=== PATIENT | male | born 1930 ===

== ENCOUNTER 2017-10-12 17:03 | Emergency (ER) | payer OTHER, MEDICARE ==
[~2017-10-12] VITALS: Ht 170.2 cm; Wt 68.0 kg
[~2017-10-12 17:03] MED LIST: ARICEPT ODT10 MG PO; ASPIRIN81 M1 PO; FLOMAX(MONOGRA0.4 MG PO; FOLIC ACID 1 MG PO; LIPITOR20 MG PO; LOPRESSOR50 MG PO; MICROZIDE12.5 MG PO; PROS5 PO; TOPROL XL 25MG25 MG PO; VITAMIN B122500 MCG PO
[2017-10-12 17:07] VITALS: BP 186/90
--- NOTE | 2017-10-12 18:41 | ED GI/GU/ABDOMINAL COMPLAINT ---
See Addendum History of Present Illness General Chief Complaint: Male Genitourinary Problems Stated Complaint: NO URINE OUTPUT INTO CATH Source: family Exam Limitations: dementia Vital Signs & Intake/Output Vital Signs & Intake/Output Vital Signs Date Time Temp Pulse Resp B/P B/P Pulse O2 O2 Flow FiO2 Mean Ox Delivery Rate 10/12 1939 96 Room Air 10/12 1707 96.4 96 18 186/90 94 Room Air Room Air Allergies Coded Allergies: NO KNOWN ALLERGIES (08/07/15) Triage Note: TRIAGE: 87 Y/O MALE PRESENTS FOR URINARY CATHETER CHANGE. DUE FOR CATH CHANGE AT UROLOGIST TOMORROW - BUT NO OUTPUT IN DRAINAGE BAG TODAY. Triage Nurses Notes Reviewed? yes Duration: constant Timing: single episode today Quality/Severity: fullness Severity Numbers: 5 Radiation: no radiation HPI: PT IS AN 87-year-old male PMH of hypertension, hyperlipidemia, dementia, stroke, ICH and chronic UTIs with indwelling Pascal catheter patient's urologist Dr. Carson in which patient presents to emergency room with son who lives in a private residence together for concerns of noting that the urine catheter tube was dislodged from the Pascal earlier today however the Pascal to the urethra was in place and since reattachment by son patient has had no urine output no vomiting has occurred History is limited due to patient's dementia history (Devora BENÍTEZ,Trever) Reconcile Medications Atorvastatin (Atorvastatin Calcium) 20 MG TAB 1 TAB PO DAILY CHOLESTEROL ( Reported) Augmentin (Augmentin 500-125 Tablet) 500 MG-125 MG TABLET 1 TAB PO BID UTI CYANOCOBALAMIN (VITAMIN B-12) (Vitamin B-12) 2,500 MCG TAB 1 TAB PO DAILY SUPPLEMENT (Reported) DONEPEZIL HCL (Aricept Odt) 10 MG ODT 0.5 TAB PO DAILY MENTAL HEALTH ( Reported) Finasteride (Propecia) 5 MG TAB 5 MG PO DAILY BPH Folic Acid 1 MG TAB 1 TAB PO DAILY FOLIC ACID SUPPLEMENT (Reported) Hydrochlorothiazide (Microzide) 12.5 MG CAP 1 CAP PO DAILY WATR PILL ( Reported) Metoprolol Succ XL (Toprol XL 25MG) 25 MG TAB 25 MG PO DAILY High Blood Pressure Tamsulosin Hydrochloride (Flomax) 0.4 MG CAP 0.4 MG PO DAILY BPH (Antony PEREZ,[place]) Past History Travel History Traveled to [place] past 21 day No Medical History Any Pertinent Medical History? 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 No (Trever John) Review of Systems Review of Systems Constitutional: Reports: no symptoms. EENTM: Reports: no symptoms. Respiratory: Reports: no symptoms. Cardiovascular: Reports: no symptoms. GI: Reports: see HPI. Genitourinary: Reports: see HPI. Musculoskeletal: Reports: no symptoms. Skin: Reports: no symptoms. Neurological/Psychological: Reports: no symptoms. Hematologic/Endocrine: Reports: no symptoms. Immunologic/Allergic: Reports: no symptoms. All Other Systems: Reviewed and Negative (Trever John) Physical Exam Physical Exam General Appearance: no apparent distress, alert, comfortable Head: atraumatic Eyes: Bilateral: normal appearance. Ears, Nose, Throat, Mouth: hearing grossly normal Neck: normal inspection Respiratory: no respiratory distress Cardiovascular: regular rate/rhythm Gastrointestinal: distention, tenderness Extremities: normal range of motion Skin: intact, normal color Core Measures ACS in differential dx? No Sepsis Present: No Sepsis Focused Exam Completed? No (Trever John) Progress Differential Diagnosis: AAA, AMI, appendicitis, biliary colic, bowel obstruction , colon cancer, cholecystitis, diverticulitis, gastritis, hepatitis, hernia, hemorrhoids, ischemic bowel, inflamm bowel dis, orchitis, pancreatitis, prostatitis, peptic ulcer, PUD/GERD, perforated viscous, pyelonephritis, SBO, testicular torsion, ureterolithiasis, urinary retention, urethritis, UTI/pyelo Initial ED EKG: none (Trever John) Plan of Care: Orders Procedure Date/time Status Pascal, Insertion/Removal/Asses 10/12 1844 Active CULTURE,URINE 10/12 1844 Active URINALYSIS 10/12 1844 Complete Laboratory Tests 10/12/171957: Urine Color ORANG H, Urine Clarity CLDY H, Urine pH 7.0, Ur Specific [place] 1.020, Urine Protein 100 H, Urine Ketones NEG, Urine Nitrite POS H, Urine Bilirubin NEG, Urine Urobilinogen 0.2, Ur Leukocyte Esterase LARGE H, Ur Microscopic SEDIMENT EXAMINED, Urine RBC 10-15 H, Urine WBC PACKD H, Urine Bacteria MANY H, Urine Hemoglobin LARGE H, Urine Glucose NEG Microbiology 10/12 1957 URINE ROUT: Urine Culture - RECD Patient on initial presentation was resting, bedside no apparent distress afebrile however has no urine output noted an indwelling Pascal patient has mild abdominal tenderness suprapubic region No peritoneal signs Patient afebrile Pascal catheter was replaced by nursing staff and which in total in approximately 10 minutes patient produced 900 mL of dark and brown urine Patient was reexamined nontender and nondistended abdomen Patient will have urine analysis and culture sent and reevaluated to continue to see if urine Pascal is functioning Previous urine cultures indicate that patient has grown out Escherichia coli susceptible TO X2 both occasions to Augmentin After Pascal was placed patient is producing urine patient will be treated for UTI discussed disposition and plan with Dr. Hardy and son who agreed have no questions (Trever John) (Antony PEREZ,[place]) Departure Departure Disposition: HOME OR SELF CARE Condition: Stable Clinical Impression Primary Impression: UTI (urinary tract infection) Secondary Impressions: Malfunction of Pascal catheter Referrals: Iban Turner MD (PCP/Family) Additional Instructions: As discussed follow-up with your urologist tomorrow for further evaluation treatment continue with your Pascal care maintenance, if symptoms worsen return to emergency room. Begin the prescription of Augmentin as directed PRESCRIPTIONS waiting at [facility] Departure Forms: Customer Survey General Discharge Information Prescriptions: Current Visit Scripts Augmentin (Augmentin 500-125 Tablet) 1 TAB PO BID #14 TAB (Trever John) PA/BALL WINDER Co-Sign Statement Statement: ED Attending supervision documentation- [X] I saw and evaluated the patient. I have also reviewed all the pertinent lab results and diagnostic results. I agree with the findings and the plan of care as documented in the PA's/BALL WINDER's documentation. [X] I have reviewed the ED Record and agree with the PA's/BALL WINDER's documentation. [] Additions or exceptions (if any) to the PAs/BALL WINDER's note and plan are summarized below: [] (Antony PEREZ,[place])
[2017-10-12] MEDS ORDERED: AUGMENTIN 500-1 EACH PO (20:21)
== END 2017-10-12 20:36 ==
LOC: ERH 17:03
DX: T83.511A Infection and inflammatory reaction due to indwelling urethral catheter, initial encounter (principal); N39.0 Urinary tract infection, site not specified
CPT/HCPCS: 81001; 87086

== ENCOUNTER 2017-11-08 12:27 | Emergency (ER) | payer OTHER, MEDICARE ==
[~2017-11-08] VITALS: Ht 170.2 cm; Wt 65.8 kg
[~2017-11-08 12:27] MED LIST changes: +AUGMENTIN 500-1 EACH PO
--- NOTE | 2017-11-08 12:36 | ED GI/GU/ABDOMINAL COMPLAINT ---
History of Present Illness General Chief Complaint: Male Genitourinary Problems Stated Complaint: ELISE LEAKING Source: patient, family Exam Limitations: no limitations Vital Signs & Intake/Output Vital Signs & Intake/Output Vital Signs Date Time Temp Pulse Resp B/P B/P Pulse O2 O2 Flow FiO2 Mean Ox Delivery Rate 11/08 1423 97.8 52 18 171/79 98 Room Air 11/08 1229 96.4 61 18 180/90 97 Room Air ED Intake and Output 11/09 0000 11/08 1200 Intake Total Output Total 100 Balance -100 Output, Urine 100 Patient 145 lb Weight Weight Reported by Patient Measurement Method Allergies Coded Allergies: NO KNOWN ALLERGIES (08/07/15) Triage Note: 87 "LEAKING ELISE CATHETER" - FIRST NOTICED THIS AM WHILE FAMILY WAS WASHING PT. [facility] PLACED CATHETER APPROX 3-4 WEEKS AGO AND LEAKING WAS FIRST NOTED TODAY. SMALL AMOUNT OF URINE NOTED IN BAG, APPEARS DARK. Triage Nurses Notes Reviewed? yes HPI: 87 yo M PMH HTN, recurrent UTI/BPH (w/ chronic elise) presenting with elise catheter problem. Patient's son states that this morning when he went to get him ready for the day and found his pants to be soaked with urine with presumed leaking of urine around the Elise catheter insertion site. Patient has been otherwise asymptomatic, son denies fevers, change in color or smell of urine, unsteady gait, confusion, or other concerning symptoms. (Radha PEREZ,Bhavesh) Past History Travel History Traveled to [place] past 21 day No Medical History Any Pertinent Medical History? 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 No (Bhavesh Garcia MD) Review of Systems Review of Systems Constitutional: Reports: no symptoms. EENTM: Reports: no symptoms. Respiratory: Reports: no symptoms. Cardiovascular: Reports: no symptoms. GI: Reports: no symptoms. Genitourinary: Reports: see HPI. Musculoskeletal: Reports: no symptoms. Skin: Reports: no symptoms. Neurological/Psychological: Reports: no symptoms. Hematologic/Endocrine: Reports: no symptoms. Immunologic/Allergic: Reports: no symptoms. All Other Systems: Reviewed and Negative (Radha PEREZ,Bhavesh) Physical Exam Physical Exam General Appearance: well developed/nourished, no apparent distress, alert, awake Eyes: Bilateral: PERRL, EOMI. 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 No Sepsis Present: No Sepsis Focused Exam Completed? No (Bhavesh Garcia MD) Progress Differential Diagnosis: AAA, AMI, appendicitis, biliary colic, bowel obstruction , colon cancer, cholecystitis, diverticulitis, epididymitis, esophageal varices, gastritis, hepatitis, hernia, hemorrhoids, ischemic bowel, inflamm bowel dis, Diana-Saray tear, orchitis, pancreatitis, prostatitis, peptic ulcer, PUD/GERD, perforated viscous, pyelonephritis, SBO, STD, testicular torsion, ureterolithiasis, urinary retention, urethritis, UTI/pyelo Plan of Care: Orders Procedure Date/time Status Elise, Insertion/Removal/Asses 11/08 1323 Active CULTURE,URINE 11/08 1256 Active URINALYSIS 11/08 1256 Complete Laboratory Tests 11/08/17 1320: Urine Color YEL, Urine Clarity CLDY H, Urine pH 7.5, Ur Specific [place] 1.020, Urine Protein 100 H, Urine Ketones NEG, Urine Nitrite NEG, Urine Bilirubin NEG, Urine Urobilinogen 0.2, Ur Leukocyte Esterase MOD H, Ur Microscopic SEDIMENT EXAMINED, Urine RBC 3-5, Urine WBC PACKD H, Urine Bacteria MANY H, Urine Hemoglobin MOD H, Urine Glucose NEG Microbiology 11/08 1320 URINE ROUT: Urine Culture - RECD Physician MDM: 87 yo M PMH HTN, recurrent UTI/BPH (w/ chronic elise) presenting with elise catheter problem. VSS, afebrile, remainder of exam as above. DDx: Elise catheter malfunction, consider UTI. Discussed ventral penile wound with son, chronic, does not appear worse today, does not seem to cause patient discomfort. Defective 16 Fr elise removed (notably 25 cc of fluid in balloon, ? overinflated), 16 Fr elise replaced without complication, drainage of urine into bag without drainage at urethral opening. UA sent from Elise with many WBCs, many bacteria, nitrate negative, discussed findings UA was son, low concern for UTI given patient at baseline without fevers, son notes that patient has had "resistant Bacteria", most recent UCx shows multi resistant Escherichia coli ( susceptible only to gentamicin). I discussed outpatient monitoring with the patients son vs. admission for IV antibiotics, given overall low concern for UTI , son would prefer to monitor for concerning symptoms at home, will return to ED for fevers, confusion, or gait instability, plan to follow-up with urologist on Friday for results of urine culture and further treatment.. On re-examination patient well-appearing, resting comfortably, ambulated in ED at baseline. Discharged with return precautions, plan for close follow-up with urology. Initial ED EKG: none (Radha PEREZ,Bhavesh) Departure Departure Disposition: HOME OR SELF CARE Condition: Stable Clinical Impression Primary Impression: Elise catheter problem Referrals: Iban Turner MD (PCP/Family) Additional Instructions: Follow up with your urologist in the next 2-3 days for results of Urine Culture. Return to th ED if Vinny seems unsteady on his feet, confused, or develops fevers. Return to the ED for any new, worsening, or concerning symptoms. Departure Forms: Customer Survey General Discharge Information (Bhavesh Garcia MD) Resident Co-Sign Statement Statement: ED Attending supervision documentation- I saw and evaluated the patient. I have also reviewed all the pertinent lab results and diagnostic results. I agree with the findings and the plan of care as documented in the Resident's documentation. x I have reviewed the ED Record and agree with the Resident's documentation. [] Additions or exceptions (if any) to the Resident's note and plan are summarized below: [] (Jesse PEREZ,[place])
[2017-11-08 14:23] VITALS: BP 171/79
== END 2017-11-08 15:15 ==
LOC: ERH 12:27
DX: T83.038A Leakage of other urinary catheter, initial encounter (principal)
CPT/HCPCS: 81001; 87086

== ENCOUNTER 2017-11-15 12:27 | Emergency (ER) | payer OTHER, MEDICARE ==
[~2017-11-15] VITALS: Ht 170.2 cm; Wt 63.5 kg
[2017-11-15 12:35] VITALS: BP 121/61
--- NOTE | 2017-11-15 13:01 | ED GI/GU/ABDOMINAL COMPLAINT ---
History of Present Illness General Chief Complaint: Male Genitourinary Problems Stated Complaint: ?CLOGGED ELISE Source: patient, family (SON), old records Exam Limitations: no limitations Vital Signs & Intake/Output Vital Signs & Intake/Output Vital Signs Date Time Temp Pulse Resp B/P B/P Pulse O2 O2 Flow FiO2 Mean Ox Delivery Rate 11/15 1235 96.4 52 16 121/61 95 Room Air Allergies Coded Allergies: NO KNOWN ALLERGIES (08/07/15) Reconcile Medications Sulfamethoxazole/Trimethoprim (Bactrim Ds Tablet) 800 MG-160 MG TABLET 1 TAB PO BID UTI Triage Note: PT PRESENTS TO THE ER C/O NO URINE IN ELISE. PT WAS SEEN IN THE ER LAST SAT FOR ELISE LEAKING AND ELISE WAS CHANGED. PER PT SON IT WAS WORKING UNTIL LAST NIGHT. FROM LAST NIGHT SMALL AMOUNT OF URINE. PT STATES "I HAVE TO PEE" PT DENIES PAIN Triage Nurses Notes Reviewed? yes Onset: Abrupt Duration: day(s): (1), constant, continues in ED Timing: recent history Quality/Severity: fullness Location: suprapubic Radiation: no radiation Activities at Onset: none Prior Abdominal Problems: similar symptoms Past Sexual History: Unobtainable at this time No Modifying Factors: none HPI: 87-year-old male past medical history of CVA, dementia presents for evaluation of a possibly clogged Elise. Patient's son reports that the urine output in the Elise bag has reduced significantly patient states he feels like he needs to urinate. He denies any fevers or leakage of urine from the Elise. Patient was here last week with a leaking Elise that was replaced. Patient had been fine until this morning. Patient's mental status is at baseline. There is been no fever or chills pain weakness or difficulty ambulating. No chest pain shortness of breath abdominal pain or back pain. (Bar Ackerman) Past History Travel History Traveled to [place] past 21 day No Medical History Any Pertinent Medical History? 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 No (Bar Ackerman) Review of Systems Review of Systems Constitutional: Reports: no symptoms. EENTM: Reports: no symptoms. Respiratory: Reports: no symptoms. Cardiovascular: Reports: no symptoms. GI: Reports: no symptoms. Genitourinary: Reports: see HPI. Musculoskeletal: Reports: no symptoms. Skin: Reports: no symptoms. Neurological/Psychological: Reports: no symptoms. Hematologic/Endocrine: Reports: no symptoms. Immunologic/Allergic: Reports: no symptoms. All Other Systems: Reviewed and Negative (Bar Ackerman) Physical Exam Physical Exam General Appearance: well developed/nourished, no apparent distress, alert, awake Head: atraumatic, normal appearance Eyes: Bilateral: normal appearance, EOMI. Ears, Nose, Throat, Mouth: hearing grossly normal, moist mucous membrane Neck: normal inspection, supple, full range of motion Respiratory: normal breath sounds, chest non-tender, no respiratory distress, lungs clear Cardiovascular: regular rate/rhythm, normal peripheral pulses Peripheral Pulses: 2+ radial (R), 2+ radial (L) Gastrointestinal: normal bowel sounds, soft, non-tender, no organomegaly Male Genitals: Elise CATHETER IS IN PLACE AT THE BASE OF THE PENIS. tHERE APPEARS TO BE A CHRONIC WOUND IN THIS AREA RELATED TO THE Elise CATHETER BEING IN PLACE FOR GREATER THAN A YEAR. tHERE IS NO ERYTHEMA OR SWELLING OR PURULENT DISCHARGE. nO TENDERNESS TO PALPATION. Back: normal inspection, normal range of motion, no vertebral tenderness Extremities: normal range of motion Neurologic/Psych: no motor/sensory deficits, awake, alert, normal gait (WITH WALKER ), PATIENT IS ALERT AND ORIENTED TO PERSON AND PLACE ONLY THIS IS BASELINE Skin: intact, normal color, warm/dry Core Measures ACS in differential dx? No Sepsis Present: No Sepsis Focused Exam Completed? No (Bar Ackerman) Progress Differential Diagnosis: ureterolithiasis, urinary retention, urethritis, UTI/ pyelo Plan of Care: Orders Procedure Date/time Status Elise, Insertion/Removal/Asses 11/15 1236 Active CULTURE,URINE 11/15 1236 Active URINALYSIS 11/15 1236 Complete Laboratory Tests 11/15/17 1300: Urine Color YEL, Urine Clarity CLDY H, Urine pH 7.0, Ur Specific [place] 1.020, Urine Protein 100 H, Urine Ketones NEG, Urine Nitrite NEG, Urine Bilirubin NEG, Urine Urobilinogen 1.0, Ur Leukocyte Esterase MOD H, Ur Microscopic SEDIMENT EXAMINED, Urine RBC 1-3, Urine WBC > 75 H, Urine Bacteria PACKD H, Urine Hemoglobin SMALL H, Urine Glucose NEG Microbiology 11/15 1300 URINE ROUT: Urine Culture - RECD Patient seen and evaluated. He is at his baseline according to his son is at the bedside. No fevers vital signs are stable. No abdominal tenderness no CVA tenderness. Urine in the Elise is showing large amounts of sediment. Urinalysis shows signs of infection. Because this is patient's second time having issues with the Elise will be placed on antibiotics and hope to reduce the amount of sediment in the urine. Previous culture grew bacteria susceptible to Bactrim. Restaurant plenty of fluids and monitor symptoms. Follow up with urologist. Monitor symptoms return with any concerns. Case discussed with Dr. Vega she agrees Initial ED EKG: none (Bar Ackerman) Departure Departure Disposition: HOME OR SELF CARE Condition: Stable Clinical Impression Primary Impression: Obstructed Elise catheter Qualifiers: Encounter type: initial encounter Qualified Code: T83.091A - Other mechanical complication of indwelling urethral catheter, initial encounter Secondary Impressions: UTI (urinary tract infection) Qualifiers: Urinary tract infection type: acute cystitis Hematuria presence: without hematuria Qualified Code: N30.00 - Acute cystitis without hematuria Referrals: Iban Turner MD (PCP/Family) Additional Instructions: Take antibiotics as directed for the full course. Follow up with urologist and primary care doctor. Monitor symptoms return with any concerns Departure Forms: Customer Survey General Discharge Information Prescriptions: Current Visit Scripts Sulfamethoxazole/Trimethoprim (Bactrim Ds Tablet) 1 TAB PO BID #14 TAB (Bar Ackerman) PA/LAND TITLE EXAMINER Co-Sign Statement Statement: ED Attending supervision documentation- [X] I saw and evaluated the patient. I have also reviewed all the pertinent lab results and diagnostic results. I agree with the findings and the plan of care as documented in the PA's/LAND TITLE EXAMINER's documentation. [X] I have reviewed the ED Record and agree with the PA's/LAND TITLE EXAMINER's documentation. [] Additions or exceptions (if any) to the PAs/LAND TITLE EXAMINER's note and plan are summarized below: [] (Gary PEREZ,Lydia)
[2017-11-15] MEDS ORDERED: BACTRIM DS TAB1 EACH PO (13:28)
== END 2017-11-15 13:36 ==
LOC: ERH 12:27
DX: T83.091A Other mechanical complication of indwelling urethral catheter, initial encounter (principal); N39.0 Urinary tract infection, site not specified
CPT/HCPCS: 81001; 87086

== ENCOUNTER 2017-12-18 16:46 | Emergency (ER) | payer OTHER, MEDICARE ==
[~2017-12-18 16:46] MED LIST changes: +BACTRIM DS TAB1 EACH PO
--- NOTE | 2017-12-18 18:28 | ED GI/GU/ABDOMINAL COMPLAINT ---
History of Present Illness General Chief Complaint: General Adult Stated Complaint: LOWER ABD PAIN/ELISE CHANGE PER SON Source: patient Exam Limitations: no limitations Vital Signs & Intake/Output Vital Signs & Intake/Output Vital Signs Date Time Temp Pulse Resp B/P B/P Pulse O2 O2 Flow FiO2 Mean Ox Delivery Rate 12/18 1659 98.1 61 16 144/71 96 Room Air Allergies Coded Allergies: NO KNOWN ALLERGIES (08/07/15) Reconcile Medications Sulfamethoxazole/Trimethoprim (Bactrim Ds Tablet) 800 MG-160 MG TABLET 1 TAB PO BID UTI Triage Note: PT HAS CHRONIC INDEWELLING ELISE DUE TO BE CHANGED THIS COMING FRIDAY. REPORTING LOWER ABD PAIN ALL DAY TODAY. ELISE DRAINING DARK AKIN, CLOUDY URINE. PT HAS BEEN TAKING PO BACTRIM FOR APPROX 1 MONTH PER SON. DENIES FEVERS/CHILLS, N/V. Triage Nurses Notes Reviewed? yes Onset: Abrupt Duration: day(s): Timing: recent history Location: lower abdomen Radiation: no radiation Activities at Onset: none No Modifying Factors: none HPI: 57-year-old male comes into the emergency room for further evaluation of pain to lower abdomen and indwelling catheter. Patient has a history of urinary tract infections. He is currently on Bactrim daily. Family member denies any fever chills vomiting or any other complaints. He complained some pain to his lower abdomen earlier today. No other associated symptoms. (Simon Marino) Past History Travel History Traveled to [place] past 21 day No Medical History Any Pertinent Medical History? see below for history Neurological: CVA, dementia EENT: NONE Cardiovascular: hypertension Respiratory: NONE Gastrointestinal: NONE Hepatic: NONE Renal: urinary incontinence, RECURRENT UTI Musculoskeletal: NONE Psychiatric: NONE Endocrine: NONE Blood Disorders: NONE Cancer(s): NONE AEROSPACE CONTROL AND WARNING SYSTEMS/Reproductive: NONE History of MRSA: No History of VRE: No History of CDIFF: No Surgical History Surgical History: non-contributory Psychosocial History Who do you live with Son Services at Home None What is your primary language Croatian Tobacco Use: Never used Family History Hx Contributory? No (Simon Marino) Review of Systems Review of Systems Constitutional: Reports: no symptoms. EENTM: Reports: no symptoms. Respiratory: Reports: no symptoms. Cardiovascular: Reports: no symptoms. GI: Reports: see HPI. Genitourinary: Reports: no symptoms. Musculoskeletal: Reports: no symptoms. Skin: Reports: no symptoms. Neurological/Psychological: Reports: no symptoms. Hematologic/Endocrine: Reports: no symptoms. Immunologic/Allergic: Reports: no symptoms. All Other Systems: Reviewed and Negative (Simon Marino) Physical Exam Physical Exam General Appearance: alert, awake Head: atraumatic Eyes: Bilateral: normal appearance. Ears, Nose, Throat, Mouth: moist mucous membrane Neck: normal inspection Respiratory: no respiratory distress Gastrointestinal: soft, non-tender Back: normal inspection Neurologic/Psych: awake, alert Skin: intact Core Measures ACS in differential dx? No Sepsis Present: No Sepsis Focused Exam Completed? No (Simon Marino) Progress Differential Diagnosis: appendicitis, bowel obstruction, pyelonephritis, SBO, urethritis, UTI/pyelo Plan of Care: Orders Procedure Date/time Status CULTURE,URINE 12/18 1808 Active URINALYSIS 12/18 1808 Complete COMPREHENSIVE METABOLIC PANEL 12/18 1808 Complete CBC WITHOUT DIFFERENTIAL 12/18 1808 Complete Laboratory Tests 12/18/17 1851: Urinalysis LIGHT H, Urine Color AKIN, Urine Clarity HAZY H, Urine pH 5.5, Ur Specific [place] 1.025, Urine Protein TRACE H, Urine Ketones TRACE H, Urine Nitrite POS H, Urine Bilirubin NEG, Urine Urobilinogen 0.2, Ur Leukocyte Esterase LARGE H, Ur Microscopic SEDIMENT EXAMINED, Urine RBC 1-3, Urine WBC > 75 H, Urine Bacteria MANY H, Hyaline Casts 1-3 H, Granular Casts 1-3 H, Urine Hemoglobin SMALL H, Urine Glucose NEG 12/18/17 1824: Anion Gap 15, Estimated GFR > 60, BUN/Creatinine Ratio 21.3, Glucose 75, Calcium 9.1, Total Bilirubin 1.2, AST 16 L, ALT 10 L, Alkaline Phosphatase 99, Total Protein 6.7, Albumin 3.7, Globulin 3.0, Albumin/Globulin Ratio 1.2, CBC w Diff NO MAN DIFF REQ, RBC 3.93 L, MCV 87.1, MCH 29.2, MCHC 33.5, RDW 14.8 H, MPV 8.1, Gran % 77.5 H, Lymphocytes % 15.9 L, Monocytes % 5.0, Eosinophils % 1.6, Basophils % 0, Absolute Granulocytes 7.0 H, Absolute Lymphocytes 1.4, Absolute Monocytes 0.4, Absolute Eosinophils 0.1, Absolute Basophils 0 Microbiology 12/18 185 URINE ROUT: Urine Culture - RECD Diagnostic Imaging: Viewed by Me: CT Scan. Discussed w/RAD: CT Scan. Radiology Impression: PATIENT: CARLOS KELLY PRESENT AGE: 87 PATIENT ACCOUNT NO: [id number] : [birth year] LOCATION: ER ORDERING PHYSICIAN: Simon BENÍTEZ SERVICE DATE: 12/18/17 EXAM TYPE : CAT - CT ABD & PELVIS W/O IV CONTRAS EXAMINATION: CT ABDOMEN AND PELVIS WITHOUT CONTRAST CLINICAL INFORMATION: Lower abdominal pain COMPARISON: None TECHNIQUE: Multidetector volumetric imaging was performed from the superior aspect of the liver through the pubic symphysis. Sagittal and coronal reformatted images were obtained on the technologist's workstation. DLP: 393 mGy -cm FINDINGS: LUNG BASES: Mild bibasilar atelectasis. LIVER, GALLBLADDER, AND BILIARY TREE: Limited noncontrast evaluation of the liver is normal. No discrete focal lesion seen. The gallbladder is unremarkable with no evidence of radiopaque gallstones, gallbladder wall thickening, or obvious pericholecystic inflammatory changes. PANCREAS: Unremarkable. SPLEEN: Unremarkable. ADRENAL GLANDS: Left adrenal gland is prominent but there is no discrete nodules seen. There is a lesser degree of thickening of the right adrenal gland. KIDNEYS AND URETERS: 2 to 3 mm nonobstructing right upper pole renal calculus. No hydronephrosis. No solid renal mass. BLADDER: There is a Elise catheter within a decompressed urinary bladder. GASTROINTESTINAL TRACT: The stomach is collapsed with wall thickening likely due to underdistention. Small bowel is nondilated. The appendix is normal. There is extensive colonic diverticulosis but no colonic wall thickening or pericolonic inflammatory changes to suggest colitis or diverticulitis. There is a large volume of stool throughout much of the colon, particularly the transverse colon. There is a large volume of stool in the rectum. There is mild circumferential rectal wall thickening with perirectal fluid and fat stranding, particularly in the presacral space. ABDOMINAL WALL: No significant hernia is appreciated. LYMPH NODES: No lymphadenopathy. VASCULAR: Normal caliber abdominal aorta. There is circumferential calcified atherosclerotic change of the aorta. 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 PELVIC VISCERA: The prostate and seminal vesicles are unremarkable. OSSEOUS STRUCTURES: Extensive degenerative changes are seen. 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 There are degenerative changes of the bilateral hips. There are severe degenerative changes of the right first carpometacarpal joint. IMPRESSION: There is a large volume of stool in the rectum with mild circumferential rectal wall thickening and subtle perirectal fluid and fat stranding, particularly in the presacral space. Stercoral colitis could give this appearance. No evidence of obstruction. No evidence of colitis or diverticulitis. DICTATED BY: Saturnino Mack MD DATE/ TIME DICTATED:12/18/171850 RN STAFF:MICHAELLE DATE/TIME TRANSCRIBED: 12/18/171850 CONFIDENTIAL, DO NOT COPY WITHOUT APPROPRIATE AUTHORIZATION. < Electronically signed in Other Vendor System> SIGNED BY: Saturnino Mack MD 12/18/171902 Initial ED EKG: none (Curtis BENÍTEZ,Simon) Departure Departure Disposition: HOME OR SELF CARE Condition: Stable Clinical Impression Primary Impression: Abdominal pain Referrals: Yue PEREZ,Iban Stern (PCP/Family) Additional Instructions: Follow-up with primary care doctor. If the patient has any difficulty with bowel movements return to the emergency room. Return if any other concerns worsening symptoms. Please go over all results of today's visit with your primary care doctor. Contact your primary care doctor to let them know you were here in the emergency room. There may be nonspecific findings which may not be related to your visit today here in the emergency room but may require further evaluation and chronic monitoring by your primary care doctor. If you had a laceration today the chance of foreign body always remains. You should follow-up with your primary care doctor for recheck in 3-5 days for a wound check. If you had an x-ray done there is a chance that a fracture could have been missed on initial read and you should follow-up with your primary care doctor for repeat x-rays if symptoms persist. If your blood pressure was elevated here in the emergency room please have rechecked by [facility] primary care doctor within the next 48. If you were prescribed a narcotic here in the emergency room or any type of controlled substances you're not allowed to drive while taking this medication or operate any type of heavy machinery. Narcotics can make you feel lightheaded dizziness nausea and can cause constipation. You may need to chicken picker a stool softener. Thank you for choosing [facility] emergency room. Please return to the emergency room immediately if you have any other concerns worsening of symptoms. Departure Forms: Customer Survey General Discharge Information Comments 12/18/2017 7:33:35 PM Patient clinically looks well. Patient is no apparent distress. Patient is nontoxic-appearing. Return to the emergency room immediately if any other concerns worsening symptoms. Elise catheter was changed out. Follow-up with urologist. case discussed with dr harris. (Curtis BENÍTEZ,Simon) PA/LABORER VINEYARD Co-Sign Statement Statement: ED Attending supervision documentation- x I saw and evaluated the patient. I have also reviewed all the pertinent lab results and diagnostic results. I agree with the findings and the plan of care as documented in the PA's/LABORER VINEYARD's documentation. [] I have reviewed the ED Record and agree with the PA's/LABORER VINEYARD's documentation. [] Additions or exceptions (if any) to the PAs/LABORER VINEYARD's note and plan are summarized below: [] (Jesse PEREZ,Alcon)
[2017-12-18 18:56] LABS: ABSOLUTE BASOPHIL COUNT 0 /CUMM (0.0-0.2); ABSOLUTE EOSINOPHIL COUNT 0.1 /CUMM (0.0-0.7); ABSOLUTE LYMPH COUNT 1.4 /CUMM (1.2-3.4); ABSOLUTE MONOCYTE COUNT 0.4 /CUMM (0.10-0.60); BASOPHIL % 0 % (0.0-2.0); EOSINOPHIL % 1.6 % (0-5); GRANULOCYTE % 77.5 % (42.2-75.2); HEMATOCRIT 34.2 % (42-52); MEAN CORPUSCULAR HGB 29.2 PG (27.0-31.0); MEAN CORPUSCULAR HGB CONC 33.5 G/DL (33.0-37.0); MEAN CORPUSCULAR VOLUME 87.1 FL (80.0-94.0); MEAN PLATELET VOLUME 8.1 FL (7.4-10.4); PLATELET COUNT 213 /CUMM (130-400); RBC DISTRIBUTION WIDTH 14.8 % (11.5-14.5); RED BLOOD CELL CT 3.93 /CUMM (4.70-6.10)
--- NOTE | 2017-12-18 19:03 | CT SCAN REPORT ---
EXAMINATION: CT ABDOMEN AND PELVIS WITHOUT CONTRAST CLINICAL INFORMATION: Lower abdominal pain COMPARISON: None TECHNIQUE: Multidetector volumetric imaging was performed from the superior aspect of the liver through the pubic symphysis. Sagittal and coronal reformatted images were obtained on the technologist's workstation. DLP: 393 mGy-cm FINDINGS: LUNG BASES: Mild bibasilar atelectasis. LIVER, GALLBLADDER, AND BILIARY TREE: Limited noncontrast evaluation of the liver is normal. No discrete focal lesion seen. The gallbladder is unremarkable with no evidence of radiopaque gallstones, gallbladder wall thickening, or obvious pericholecystic inflammatory changes. PANCREAS: Unremarkable. SPLEEN: Unremarkable. ADRENAL GLANDS: Left adrenal gland is prominent but there is no discrete nodules seen. There is a lesser degree of thickening of the right adrenal gland. KIDNEYS AND URETERS: 2 to 3 mm nonobstructing right upper pole renal calculus. No hydronephrosis. No solid renal mass. BLADDER: There is a Pascal catheter within a decompressed urinary bladder. GASTROINTESTINAL TRACT: The stomach is collapsed with wall thickening likely due to underdistention. Small bowel is nondilated. The appendix is normal. There is extensive colonic diverticulosis but no colonic wall thickening or pericolonic inflammatory changes to suggest colitis or diverticulitis. There is a large volume of stool throughout much of the colon, particularly the transverse colon. There is a large volume of stool in the rectum. There is mild circumferential rectal wall thickening with perirectal fluid and fat stranding, particularly in the presacral space. ABDOMINAL WALL: No significant hernia is appreciated. LYMPH NODES: No lymphadenopathy. VASCULAR: Normal caliber abdominal aorta. There is circumferential calcified atherosclerotic change of the aorta. 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 PELVIC VISCERA: The prostate and seminal vesicles are unremarkable. OSSEOUS STRUCTURES: Extensive degenerative changes are seen. 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 There are degenerative changes of the bilateral hips. There are severe degenerative changes of the right first carpometacarpal joint. IMPRESSION: There is a large volume of stool in the rectum with mild circumferential rectal wall thickening and subtle perirectal fluid and fat stranding, particularly in the presacral space. Stercoral colitis could give this appearance. No evidence of obstruction. No evidence of colitis or diverticulitis.
[2017-12-18 19:52] VITALS: BP 136/72
[2018-01-17] MEDS ORDERED: MACROBID 100 M100 MG PO (20:15)
[2018-04-16] MEDS ORDERED: CIPRO500 M1 PO (15:41)
== END 2017-12-18 20:00 ==
LOC: ERH 16:46
PROVIDERS: Physician Assistant Medical
DX: R10.30 Lower abdominal pain, unspecified (principal)
CPT/HCPCS: 74176; 81001; 87086

== ENCOUNTER 2017-12-20 19:11 | Inpatient (IN) | payer OTHER, MEDICARE ==
[~2017-12-20] VITALS: Ht 167.4 cm; Wt 59.2 kg
[2017-12-20 19:55] LABS: ABSOLUTE BASOPHIL COUNT 0 /CUMM (0.0-0.2); ABSOLUTE EOSINOPHIL COUNT 0.1 /CUMM (0.0-0.7); ABSOLUTE GRANULOCYTE CT 5.7 /CUMM (1.4-6.5); ABSOLUTE LYMPH COUNT 0.9 /CUMM (1.2-3.4); ABSOLUTE MONOCYTE COUNT 0.5 /CUMM (0.10-0.60); BASOPHIL % 0.3 % (0.0-2.0); EOSINOPHIL % 0.8 % (0-5); GRANULOCYTE % 78.9 % (42.2-75.2); HEMATOCRIT 33.2 % (42-52); MEAN CORPUSCULAR HGB 28.6 PG (27.0-31.0); MEAN CORPUSCULAR HGB CONC 33.1 G/DL (33.0-37.0); MEAN CORPUSCULAR VOLUME 86.7 FL (80.0-94.0); PLATELET COUNT 223 /CUMM (130-400); RBC DISTRIBUTION WIDTH 14.9 % (11.5-14.5); RED BLOOD CELL CT 3.83 /CUMM (4.70-6.10); WHITE BLOOD CELL COUNT 7.2 /CUMM (4.8-10.8)
--- NOTE | 2017-12-20 20:14 | ED GI/GU/ABDOMINAL COMPLAINT ---
History of Present Illness General Chief Complaint: Abdominal Pain/Flank Pain Stated Complaint: ABD PAIN Source: family Exam Limitations: dementia Vital Signs & Intake/Output Vital Signs & Intake/Output Vital Signs Date Time Temp Pulse Resp B/P B/P Pulse O2 O2 Flow FiO2 Mean Ox Delivery Rate 12/20 1916 97.8 69 16 173/79 94 Room Air Allergies Coded Allergies: NO KNOWN ALLERGIES (08/07/15) Reconcile Medications Sulfamethoxazole/Trimethoprim (Bactrim Ds Tablet) 800 MG-160 MG TABLET 1 TAB PO BID UTI Triage Note: PT TO TRIAGE WITH SON WHO REPORTS PT WAS C/O SOME ABD PAIN TODAY. PT ALSO HAS BEEN HAVING PERIODS OF ALTERED MENTAL STATUS S/P CATHETER CHANGE ON FRIDAY. PT ARRIVES MOSTLY NONVERBAL IN TRIAGE, GIVING SOME SMALL YES NO ANSWERS. PER SON THIS IS NOT UNUSUAL FOR PT. PT DENIES N/V/D. HX CVA, SL LEFT FACIAL DROOP RESIDUAL PER SON. Triage Nurses Notes Reviewed? yes HPI: 87 yo M PMH HTN, recurrent UTI/BPH (w/ chronic victoria) presenting with abdominal pain. Patient has hx of dementia, minimally verbal at baseline, per son patient has had altered mental status, weakness, and abdominal pain for the last 2-3 days. Evaluated 2 days ago in this ED, UA suggestive of UTI, discharged on bactrim. Since discharge patient has still seemed unsteady on his feet, diffusely weak, family has been having increased difficulty standing/pivoting him from the bed to wheelchair. Patient still seems intermittently confused and less responsive than ususal. Apparent increased abdominal pain starting today, patient grimacing and complaining of pain in suprapubic location. (Radha PEREZ,Bhavesh) Past History Travel History Traveled to [place] past 21 day No Medical History Any Pertinent Medical History? 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 Yes (Bhavesh Garcia MD) Review of Systems Review of Systems Constitutional: Reports: no symptoms. EENTM: Reports: no symptoms. Respiratory: Reports: no symptoms. Cardiovascular: Reports: no symptoms. GI: Reports: see HPI. Genitourinary: Reports: see HPI. Musculoskeletal: Reports: no symptoms. Skin: Reports: no symptoms. Neurological/Psychological: Reports: no symptoms. Hematologic/Endocrine: Reports: no symptoms. Immunologic/Allergic: Reports: no symptoms. All Other Systems: Reviewed and Negative (Bhavesh Garcia MD) Physical Exam Physical Exam General Appearance: well developed/nourished, no apparent distress, alert, awake Head: atraumatic Eyes: Bilateral: PERRL, EOMI. Ears, Nose, Throat, Mouth: moist mucous membrane Neck: normal inspection, full range of motion Respiratory: normal breath sounds, no respiratory distress, lungs clear Cardiovascular: regular rate/rhythm, normal peripheral pulses Gastrointestinal: soft, non-tender Comments: Abdomen: Soft, Diffuse abdominal TTP with grimacing, worst over suprapubic area with voluntary guarding Core Measures ACS in differential dx? No Sepsis Present: No Sepsis Focused Exam Completed? No (Bhavesh Garcia MD) Progress Differential Diagnosis: AAA, AMI, appendicitis, biliary colic, bowel obstruction , colon cancer, cholecystitis, diverticulitis, epididymitis, esophageal varices, gastritis, hepatitis, hernia, hemorrhoids, ischemic bowel, inflamm bowel dis, Diana-Saray tear, orchitis, pancreatitis, prostatitis, peptic ulcer, PUD/GERD, perforated viscous, pyelonephritis, SBO, STD, testicular torsion, ureterolithiasis, urinary retention, urethritis, UTI/pyelo Plan of Care: Orders Procedure Date/time Status Regular Diet 12/21 B Active Pathway - chart 12/20 2314 Active House Staff 12/20 2314 Active Patient Data 12/20 2314 Active Code Status 12/20 2314 Active Patient Data 12/20 231 Active Misc Message 12/20 230 Active ED Holding Orders 12/20 2299 Active Code Status 12/20 2299 Complete Patient Data 12/20 224 Active Admit to inpatient 12/20 223 Active URINALYSIS 12/20 2114 Complete Intake & Output 12/20 1952 Active TROPONIN LEVEL 12/20 1916 Complete LIPASE 12/20 1916 Complete HEPATIC FUNCTION PANEL 12/20 1916 Complete CBC WITHOUT DIFFERENTIAL 12/20 1916 Complete BASIC METABOLIC PANEL 12/20 1916 Complete AMYLASE 12/20 1916 Complete EKG 12/20 1913 Active VTE Mechanical Prophylaxis 12/20 UNK Active Current Medications Sig/Guido Start time Last Medication Dose Stop Time Status Admin Enoxaparin Sodium 40 MG DAILY 12/21 0900 UNVr (Lovenox) Acetaminophen 325 MG Q6 PRN 12/20 231 UNVr (Tylenol) Laboratory Tests 12/20/172214: Urine Color YEL, Urine Clarity CLDY H, Urine pH 7.0, Ur Specific [place] 1.020, Urine Protein 100 H, Urine Ketones NEG, Urine Nitrite POS H, Urine Bilirubin NEG, Urine Urobilinogen 0.2, Ur Leukocyte Esterase LARGE H, Ur Microscopic SEDIMENT EXAMINED, Urine RBC 5-10 H, Urine WBC > 75 H, Urine Bacteria PACKD H , Urine Hemoglobin LARGE H, Urine Glucose NEG 12/20/171939: Anion Gap 11, Estimated GFR > 60, BUN/Creatinine Ratio 17.8, Glucose 105 H, Calcium 8.8, Total Bilirubin 1.3, Direct Bilirubin 0.2, AST 17, ALT 12 L, Alkaline Phosphatase 105, Troponin I < 0.01, Total Protein 6.4, Albumin 3.5, Amylase 31, Lipase 39, CBC w Diff NO MAN DIFF REQ, RBC 3.83 L, MCV 86.7, MCH 28.6, MCHC 33.1, RDW 14.9 H, MPV 7.0 L, Gran % 78.9 H, Lymphocytes % 12.7 L, Monocytes % 7.3, Eosinophils % 0.8, Basophils % 0.3, Absolute Granulocytes 5.7, Absolute Lymphocytes 0.9 L, Absolute Monocytes 0.5, Absolute Eosinophils 0.1, Absolute Basophils 0 Physician MDM: 87 yo M PMH HTN, recurrent UTI/BPH (w/ chronic victoria) presenting with weakness, confusion, abdominal pain. VSS, exam as above. DDx: UTI, cystitis , pyelonephritis, nephrolithiasis, less likely colitis, low concern for appendicitis or other surgical abdominal pathology, low concern for aortic pathology. UA suggestive ongoing infection, reviewed UCx from 12/18, showed >100, 000 CFU of ESBL E Coli, only susceptible to imipenem and gentamicin. Meropenem ordered. CT with cystitis, no other acute abdominal pathology, ?victoria inflated in prostatic urethra, will ask nursing to deflate and advance. Admit for IV abx for UTI/cystitis. Initial ED EKG: none (Radha PEREZ,Bhavesh) Departure Departure Disposition: STILL A PATIENT Condition: Stable Clinical Impression Primary Impression: Cystitis Secondary Impressions: UTI (urinary tract infection) Referrals: Yue PEREZ,Iban Stern (PCP/Family) Departure Forms: Customer Survey General Discharge Information Admission Note Spoke With: Judy Cristina MD Documentation of Exam: Documentation of any treatments & extenuating circumstances including Concerns Regarding Discharge (functional status, medication knowledge or non-compliance, living conditions, etc.) that warrant an admission rather than observation: [ Patient presents with weakness, confusion, abdominal pain in the setting of recent incomplete treatment of UTI with resistant outpatient antibiotics, patient requires admission for IV meropenem which she cannot take by mouth will be necessary to treat his urinary tract infection, if discharged patient has a high likelihood of progressive infection with patient, altered mental status, gait instability, leading to sepsis, falls, and possibly .] (Radha PEREZ,Bhavesh) PA/LIVESTOCK FEEDER Co-Sign Statement Statement: ED Attending supervision documentation- [] I saw and evaluated the patient. I have also reviewed all the pertinent lab results and diagnostic results. I agree with the findings and the plan of care as documented in the PA's/LIVESTOCK FEEDER's documentation. [x I have reviewed the ED Record and agree with the PA's/LIVESTOCK FEEDER's documentation. [] Additions or exceptions (if any) to the PAs/LIVESTOCK FEEDER's note and plan are summarized below: [] Resident Co-Sign Statement Statement: ED Attending supervision documentation- [] I saw and evaluated the patient. I have also reviewed all the pertinent lab results and diagnostic results. I agree with the findings and the plan of care as documented in the Resident's documentation. [] I have reviewed the ED Record and agree with the Resident's documentation. [] Additions or exceptions (if any) to the Resident's note and plan are summarized below: [] ([place]ana PEREZ,Cliff Benjamin)
--- NOTE | 2017-12-20 21:28 | CT SCAN REPORT ---
EXAMINATION: CT ABDOMEN AND PELVIS WITH CONTRAST CLINICAL INFORMATION: Diffuse abdominal pain, UTI. COMPARISON: CT abdomen and pelvis 12/18/2017. TECHNIQUE: Multidetector volumetric imaging was performed of the abdomen and pelvis following IV administration of 95 mL of Optiray 320 intravenous contrast. Sagittal and coronal reformatted images were obtained on the technologist's workstation. DLP: 540 mGy-cm FINDINGS: LUNG BASES: The visualized lung bases are unremarkable. LIVER, GALLBLADDER, AND BILIARY TREE: There are a couple subcentimeter hypodense hepatic lesions which are too small to characterize on CT scan. No dominant suspicious hepatic mass. No biliary ductal dilatation. The gallbladder is unremarkable. PANCREAS: Unremarkable. SPLEEN: Unremarkable. ADRENAL GLANDS: Unchanged mild bilateral adrenal fullness. KIDNEYS AND URETERS: Bilateral nephrograms are symmetric without hydronephrosis or CT evidence of pyelonephritis. There is a punctate nonobstructing calculus in the upper pole the right kidney. Tiny subcentimeter hypodense lesion in the upper pole of the right kidney statistically most likely represents a cyst. BLADDER: The bladder is trabeculated and demonstrates multiple outpouching along the anterior/cephalad margin. There are foci of gas within the bladder lumen. A Pascal catheter balloon is inflated within the prostatic urethra. GASTROINTESTINAL TRACT: Bowel gas pattern is nonobstructive. There is colonic diverticulosis without evidence of diverticulitis. Equivocal rectal wall thickening with interval decrease in volume of rectal stool. No other convincing acute bowel pathology on the current exam. ABDOMINAL WALL: No significant hernia is appreciated. LYMPH NODES: No bulky adenopathy. VASCULAR: Scattered atherosclerotic calcification. Coronary artery calcification. PELVIC VISCERA: No free pelvic fluid. Borderline prostatomegaly. Seminal vesicles are unremarkable. OSSEOUS STRUCTURES: No acute osseous abnormalities. Mild degenerative changes of the spine and hips. IMPRESSION: 1. The Pascal catheter balloon is inflated within the prosthetic urethra. 2. Bladder wall trabeculation with multiple outpouchings along the anterior/cephalad margin. Intraluminal gas within the bladder. Findings are suspicious for sequela of cystitis. 3. No CT evidence of pyelonephritis. No hydronephrosis. 4. Borderline rectal wall thickening. The volume of rectal stool burden has decreased compared to prior exam. Diverticulosis. 5. Other non-acute findings as above.
--- NOTE | 2017-12-20 23:21 | History & Physical ---
Stacie Caraballo 12/20/17 8072: General Information and HPI MD Statement: I have seen and personally examined CARLOS VELASCO and documented this H& P. The patient is a 87 year old M who presented with a patient stated chief complaint of [AMS]. Source of Information: family, old records Exam Limitations: clinical condition, confusion History of Present Illness: Mr. 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 Patient's son was not at bedside, however per ER staff, patient's son stated that patient has had altered mental status, weakness, and abdominal pain for the last 2-3 days, and since discharge patient has still seemed unsteady on his feet, diffusely weak, family has been having increased difficulty standing/ pivoting him from the bed to wheelchair. Patient was seen in the ER on 12/18, with a UTI and was sent home on Bactrim. However the urine culture has grown ESBL resistant to Bactrim this time. Patient has multiple ER visits in the past month starting 10/12/2017 with clogged Victoria and was discharged with Augmentin for 7 days with a urine culture growing ESBL sensitive to meropenem/gentamicin/nitrofurantoin, on 11/08/2017 with Victoria leaking growing Citrobacter sensitive to Augmentin/cefazolin/retroperitoneal/ Bactrim/gentamicin, and on 11/15/2017 was clogged Victoria and was discharged on Bactrim for 14 days urine culture growing ESBL sensitivity Imipenem/Bactrim/ nitrofurantoin. Son could not be reached over the phone and midnight. During our clinical interaction, patient denied fever/night sweat/weight change/ cough/SOB/Chest Pain/Palpitation/exercise intolerance/Abdominal pain/bowel movement/urinary abnormality, or other skin/musculoskeletal/neurological disorders/mood change/insomnia/dietary/appetite change. Allergies/Medications Allergies: Coded Allergies: NO KNOWN ALLERGIES (08/07/15) Home Med list Sulfamethoxazole/Trimethoprim (Bactrim Ds Tablet) 800 MG-160 MG TABLET 1 TAB PO BID UTI Past History Travel History Traveled to [place] past 21 day No Medical History Neurological: CVA, dementia EENT: NONE Cardiovascular: hypertension Respiratory: NONE Gastrointestinal: NONE Hepatic: NONE Renal: urinary incontinence, RECURRENT UTI Musculoskeletal: NONE Psychiatric: NONE Endocrine: NONE Blood Disorders: NONE Cancer(s): NONE LOADER MAGAZINE GRINDER/Reproductive: NONE History of MRSA: No History of VRE: No History of CDIFF: No Surgical History Surgical History: non-contributory Past Family/Social History Psychosocial History Services at Home: None Functional Ability ADLs Independent: eating, toileting, bathing. Needs Assist: dressing. Ambulation: independent IADLs Needs Assist: shopping, housework, finances, food prep, telephone, transportation, medication admin. Review of Systems Review of Systems Constitutional: Reports: see HPI. Exam & Diagnostic Data Last 24 Hrs of Vital Signs/I&O Vital Signs Date Time Temp Pulse Resp B/P B/P Pulse O2 O2 Flow FiO2 Mean Ox Delivery Rate 12/207 98.0 70 20 164/89 95 Room Air 12/20 191 97.8 69 16 173/79 94 Room Air Physical Exam General Appearance Alert, Cooperative, No Acute Distress, follows commands during physical exam Skin No Rashes, No Breakdown, No Significant Lesion Skin Temp/Moisture Exam: Warm/Dry Sepsis Skin Exam (color): Normal for Ethnicity HEENT Atraumatic Neck Supple, No JVD Cardiovascular Regular Rate Lungs Clear to Auscultation, Normal Air Movement Abdomen Normal Bowel Sounds, Soft, No Hepatospenomegaly, suprapubic tenderness Neurological Strength at 5/5 X4 Ext Extremities No Edema, Normal Pulses, No Tenderness/Swelling Last 24 Hrs of Labs/Vito: Laboratory Tests 12/20/175: Urine Color YEL, Urine Clarity CLDY H, Urine pH 7.0, Ur Specific [place] 1.020, Urine Protein 100 H, Urine Ketones NEG, Urine Nitrite POS H, Urine Bilirubin NEG, Urine Urobilinogen 0.2, Ur Leukocyte Esterase LARGE H, Ur Microscopic SEDIMENT EXAMINED, Urine RBC 5-10 H, Urine WBC > 75 H, Urine Bacteria PACKD H , Urine Hemoglobin LARGE H, Urine Glucose NEG 12/20/17 1940: Anion Gap 11, Estimated GFR > 60, BUN/Creatinine Ratio 17.8, Glucose 105 H, Calcium 8.8, Total Bilirubin 1.3, Direct Bilirubin 0.2, AST 17, ALT 12 L, Alkaline Phosphatase 105, Troponin I < 0.01, Total Protein 6.4, Albumin 3.5, Amylase 31, Lipase 39, CBC w Diff NO MAN DIFF REQ, RBC 3.83 L, MCV 86.7, MCH 28.6, MCHC 33.1, RDW 14.9 H, MPV 7.0 L, Gran % 78.9 H, Lymphocytes % 12.7 L, Monocytes % 7.3, Eosinophils % 0.8, Basophils % 0.3, Absolute Granulocytes 5.7, Absolute Lymphocytes 0.9 L, Absolute Monocytes 0.5, Absolute Eosinophils 0.1, Absolute Basophils 0 Assessment/Plan Assessment: On admission, Vitals: Stable afebrile, pulse 69, BP 173/79, 94% on room air -CBC: No leukocytosis, H/H 11/43.2 at baseline, -BMP: Unremarkable -UA/Microbiology: Positive for nitrite, LUE, WBC, bacteria, and RBC/hemoglobin, protein 5/3 urine culture showed ESBL sensitive to only nitrofurantoin and imipenem -Abdominal CT 1. The Victoria catheter balloon is inflated within the prosthetic urethra. 2. Bladder wall trabeculation with multiple outpouchings along the anterior/cephalad margin. Intraluminal gas within the bladder. Findings are suspicious for sequela of cystitis. 3. No CT evidence of pyelonephritis. No hydronephrosis. 4. Borderline rectal wall thickening. The volume of rectal stool burden has decreased compared to prior exam. Diverticulosis. 5. Other non-acute findings as above. -EKG: NSR 1st degree heart block CA 224 -Interventions in ER: Meropenem 1 g 1 IV Problem list & Assessment: Patient presented with clinical picture of UTI secondary to ESBL with multiple history of ESBL UTI, and was on Bactrim for month prior to this admission. ESBL in this urine culture showed resistant to Bactrim, and would have to predispose patient to infection, along with chronic Victoria. Patient had been afebrile, without any leukocytosis, however had symptomatic suprapubic tenderness. 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 History of ESBL E. coli infection 2. Cystitis 3. UTI (urinary tract infection) Core Measures/Misc (05/04) Acute Coronary Syndrome ACS Diagnosis: No Congestive Heart Failure Congestive Heart Failure Diagnosis No Cerebrovascular Accident CVA/TIA Diagnosis: No VTE (View Protocol) VTE Risk Factors Age>40 No Mechanical VTE Prophylaxis d/t N/A MechProphylax Ordered No VTE Pharm Prophylaxis d/t NA PharmProphylax ordered Sepsis (View protocol) Sepsis Present: No Reena Giles 12/21/17 0039: Resident Review Statement Resident Statement: examined this patient, discussed with pricing intern Other Findings: Patient is 87-year-old male with past medical history of end is a 27-year-old male with past medical history of dementia(minimally verbal at baseline), HTN, CVA in 2009, subdural hematoma/subarachnoid bleed in 2014, BPH, urinary retention and chronic indwelling catheter(placed about a year ago) last changed in the ER on 12/18/2017 was brought into the ED for weakness, lethargy and abdominal pain. Patient is minimally verbal at baseline, has history of dementia. Most of the history is obtained from the ER records. Patient lives with his son who reported that he has been very weak, fatigued and tired over the past few days. He has been complaining of suprapubic discomfort and gripping his belly at home. He has been unsteady on his feet(normally uses a walker) but hasn't been able to grasp a walker or walk to the future. He has baseline dementia, but has been more confused and less responsive than usual. He was seen in the ER on 2017 for abdominal pain and UA was dirty suggestive of UTI. His catheter was changed and patient was sent out on Bactrim. Urine culture grew ESBL sensitive to imipenem. He has grown ESBL in the past and his urine cultures multiple times. One of the urine cultures had pansensitive Escherichia coli. Vitals in the ED was significant for temp 97.8, pulse 69, respirations 16, blood pressure 173/79, saturating 94% on room air Labs significant for H&H 11/33.2 ( baseline) urine cloudy, nitrite positive, leukocyte esterase positive, >75 RBC EKG: NSR, First-degree heart block, no acute ST-T wave changes Abdomen and pelvis CT showed Victoria catheter in the prosthetic urethra. Bladder wall trabeculation with outpouching and intraluminal gas in the bladder? Possible cystitis. No pyelonephritis, no hydronephrosis. Diverticulosis. Stool in rectum. 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 We will continue the same for now. Tailor antibiotics as per sensitivity Pancultures PT/OT Enema. Patient has no medications listed. Please confirm this with son in a.m.(tried to reach son, no answer) DVT prophylaxis subcutaneous Lovenox Full code on (last admission, patient altered, please confirm with son in a.m. JonnieJudy 12/21/17 0533: Attending MD Review Statement Attending Statement Attending MD Statement: examined this patient, discuss w/resident/PA/ADJUSTER PIANO ACTION, agreed w/resident/PA/ADJUSTER PIANO ACTION, reviewed EMR data (avail), reviewed images, amended to note Attending Assessment/Plan: CC: Increased confusion PMH: Unknown History is obtained from ER records. Patient's family is not available bedside and not reachable by phone. Patient has dementia and confusion. Patient was brought in ER for abdominal pain. Patient's son also stated that he had episodes of altered mental status. Patient was seen in ER on December 18 for lower abdominal pain, change in urine color with chronic Vitcoria catheter. His Victoria catheter was changed during that visit, urine culture was obtained and he was not to discharged on antibiotics. After going home it appears that patient was more confused and appeared in lower abdominal pain so was brought in ER. It's difficult to assess anything with patient. Vitals: Temperature 100.3, pulse 79, RR 18, blood pressure 142/80, saturating 96 % on room air. On exam: Alert, not cooperative, not oriented, does not talk, does not follow instructions. no acute distress, neck supple, JVD normal, no lymphadenopathy, mucosa dry, no focal neurological deficit, no dependent edema, no obvious skin rashes or inflammation CVS: S1-S2, RRR. RS: Clear to auscultate bilaterally. Abdomen: Soft, tender in suprapubic area, ND, bowel sounds present. CT abdomen pelvis with IV contrast: 1. The Victoria catheter balloon is inflated within the prosthetic urethra. 2. Bladder wall trabeculation with multiple outpouchings along the anterior/cephalad margin. Intraluminal gas within the bladder. Findings are suspicious for sequela of cystitis. 3. No CT evidence of pyelonephritis. No hydronephrosis. 4. Borderline rectal wall thickening. The volume of rectal stool burden has decreased compared to prior exam. Diverticulosis. 5. Other non-acute findings as above. Assessment and plan 87-year-old male with unknown past medical history presented in ER with his son for worsening confusion, periods of altered mental status, abdominal pain. Patient was seen in ER on December 18, at that time his Victoria catheter was changed, urine culture was sent and patient was suggested to follow-up outpatient. Patient became more confused so was brought back in ER. Patient appears to have a catheter associated UTI with urine showing ESBL E Coli. According to CT scan Victoria balloon was in prosthetic urethra, which may be causing pressure and pain. CT scan also confirms finding of cystitis. Victoria catheter was changed again, once he was on medical floor. His CT abdomen without IV contrast done on December 18 showed significant constipation with suspicion of stercoral colitis. + Catheter associated UTI + Encephalopathy + Stercoral colitis - Admit to general medicine - Continue hydration - Repeat urine culture - Continue IV meropenem - Try calling son again to get more details about history of present illness, past medical history and medications - ID consult - Aggressive bowel regimen - OT PT evaluation - Evaluate for rehabilitation
[2017-12-21 00:10] VITALS: BP 142/80
--- NOTE | 2017-12-21 05:35 | Admission Certification ---
Admission Certification Certification Statement - As attending physician, I certify that at the time of - admission, based on clinical presentation, severity of - symptoms, need for further diagnostic testing and - therapeutic interventions, and risk of adverse outcomes - without in-hospital treatment, in my clinical assessment, - this patient requires an acute hospital stay for a minimum - of two nights or longer. I have also considered psychsocial - factors such as support system, advanced age, financial - issues, cognitive issues, and failed out-patient treatments, - past re-admission history, safety of patient, and lack of - compliance as applicable. Specific rationale supporting this admission is: Catheter associated UTI, encephalopathy, stercoral colitis
[2017-12-21 06:20] VITALS: BP 136/74
[2017-12-21 08:55] LABS: ABSOLUTE BASOPHIL COUNT 0 /CUMM (0.0-0.2); ABSOLUTE EOSINOPHIL COUNT 0 /CUMM (0.0-0.7); ABSOLUTE GRANULOCYTE CT 6.7 /CUMM (1.4-6.5); ABSOLUTE LYMPH COUNT 0.9 /CUMM (1.2-3.4); ABSOLUTE MONOCYTE COUNT 0.5 /CUMM (0.10-0.60); BASOPHIL % 0.3 % (0.0-2.0); EOSINOPHIL % 0.1 % (0-5); GRANULOCYTE % 82.3 % (42.2-75.2); HEMATOCRIT 31.4 % (42-52); MEAN CORPUSCULAR HGB 28.9 PG (27.0-31.0); MEAN CORPUSCULAR HGB CONC 34.2 G/DL (33.0-37.0); MEAN CORPUSCULAR VOLUME 84.4 FL (80.0-94.0); MEAN PLATELET VOLUME 7.5 FL (7.4-10.4); PLATELET COUNT 201 /CUMM (130-400); RED BLOOD CELL CT 3.72 /CUMM (4.70-6.10); WHITE BLOOD CELL COUNT 8.1 /CUMM (4.8-10.8)
--- NOTE | 2017-12-21 09:26 | PN- Housestaff ---
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 Patient had a low-grade temperature at midnight 100.3, otherwise vitals are stable. Review of Systems Constitutional: Reports: weakness. Denies: diaphoresis, fever. EENTM: Denies: blurred vision, double vision, visual changes. Cardiovascular: Denies: chest pain, edema, orthopena. Respiratory: Denies: cough, hemoptysis, orthopnea. Gastrointestinal: Denies: bloating, constipation, diarrhea. Genitourinary: Denies: discharge, dysuria, frequency. Objective Last 24 Hrs of Vital Signs/I&O Vital Signs Date Time Temp Pulse Resp B/P B/P Pulse O2 O2 Flow FiO2 Mean Ox Delivery Rate 12/21 0620 98.2 79 18 136/74 94 Room Air 12/21 0010 100.3 79 18 142/80 96 Room Air 12/20 2347 98.0 70 20 164/89 95 Room Air 12/20 1917 97.8 69 16 173/79 94 Room Air Intake & Output 12/21 1600 /06 0800 / 0000 Intake Total 300 Output Total 1000 400 Balance -700 -400 Intake, IV 300 Number 1 Bowel Movements Output, Urine 1000 400 Patient 131 lb 131 lb Weight Weight Bed scale Bed scale Measurement Method Physical Exam General Appearance: Alert, Oriented X3 Skin Temp/Moisture Exam: Cool/Dry Cardiovascular: Regular Rate, Normal S1, Normal S2 Lungs: Clear to Auscultation Assessment/Plan Assessment: Patient is 87-year-old male with past medical history of end is a 27-year-old male with past medical history of dementia(minimally verbal at baseline), HTN, CVA in 2009, subdural hematoma/subarachnoid bleed in 2014, BPH, urinary retention and chronic indwelling catheter(placed about a year ago) last changed in the ER on 12/18/2017 was brought into the ED for weakness, lethargy and abdominal pain. Pertinent vitals on admission Labs significant for H&H 11/33.2 ( baseline) urine cloudy, nitrite positive, leukocyte esterase positive, >75 RBC EKG: NSR, First-degree heart block, no acute ST-T wave changes Abdomen and pelvis CT showed Victoria catheter in the prosthetic urethra. Bladder wall trabeculation with outpouching and intraluminal gas in the bladder? Possible cystitis. No pyelonephritis, no hydronephrosis. Diverticulosis. Stool in rectum. 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 Continue with IV hydration. Patient has indwelling Victoria catheter(though hard to say if that's true infection versus colonization). As patient had a low-grade temp overnight, will continue with the meropenem for now. Awaiting culture. ID consult Dr. Hannon has been obtained, will follow his recommendations Vitals per protocol Aspiration precautions PT/OT No need for an enema as patient had 2 large bowel yesterday continue regular bowel regimen regimen including senna S and MiraLAX and milk of magnesia. Patient has no medications listed. Please confirm this with son in a.m.(tried to reach son, no answer) DVT prophylaxis subcutaneous Lovenox DNR/DNI :CODE STATUS addressed with the son(who is the power of lease administration analyst), Mr.Aphanose Peyton Hernandez-phone number [phone]. Problem List: 1. History of ESBL E. coli infection 2. Cystitis 3. Abdominal pain Pain Ratin Pain Location: No pain at this time Pain Goal: Pain 4 or less Pain Plan: When necessary Tylenoln Tomorrow's Labs & Rationales: cbc bep Maxx Jimenez MD 12/21/17 1042: Attending MD Review Statement Attending Statement Attending MD Statement: examined this patient, discuss w/resident/PA/INSPECTOR PRECISION ASSEMBLY, agreed w/resident/PA/INSPECTOR PRECISION ASSEMBLY, discussed with family, reviewed EMR data (avail), discussed with nursing, discussed with case mgmt, reviewed images, amended to note Attending Assessment/Plan: Maxx King M.D. have examined this patient, reviewed available EMR data, personally reviewed images, discussed with resident/PA/INSPECTOR PRECISION ASSEMBLY, discussed management plan with housestaff and nursing staff, discussed managment plan all of healthcare providers, discussed management plan with patient and/or family, agreed with resident/PA/INSPECTOR PRECISION ASSEMBLY. The past history and parts of the chart have been autopopulated. Impression 87 year old man * admitted for cystitis/complicated UTI in setting of recurrent ESBL along with an indwelling victoria (12/18/2017 last change) * dementia * htn * hx of SDH Plan -continue Meropenem 1gm iv q8h -non-urgent ID consultation given ESBL/Meropenem use -hydration -lung bases on abd ct were unremarkable - no need for baseline cxr at this time -f/u all cultures, monitor wbc, fevers -bowel regimen DVT prophylaxis at all times DNR/DNI - housestaff confirmed with son
[2017-12-21] MEDS ORDERED: SINEMET 25-1001 EACH PO (10:27)
[2017-12-21] MEDS ORDERED: ARICEPT5 M1 PO (10:27)
[2017-12-21] MEDS ORDERED: FINASTERIDE5 M1 PO (10:27)
[2017-12-21] MEDS ORDERED: HYDROCHLOROTH12.5 M2 PO (10:28)
[2017-12-21] MEDS ORDERED: TOPROL XL50 M1 PO (10:28)
[2017-12-21] MEDS ORDERED: FOLIC ACID1 M1 PO (10:28)
[2017-12-21] MEDS ORDERED: KLOR-CON 1010 ME1 PO (10:30)
[2017-12-21] MEDS ORDERED: FERROUS SULFAT325 M3 PO (10:31)
[2017-12-21] MEDS ORDERED: MILK OF MA400 MG/52 PO (10:31)
[2017-12-21] MEDS ORDERED: SENOKOT-S TABL1 EACH PO (10:31)
[2017-12-21 15:00] VITALS: BP 120/60
[2017-12-21 22:04] VITALS: BP 144/64
[2017-12-22 06:31] VITALS: BP 130/68
--- NOTE | 2017-12-22 08:50 | PN- Housestaff ---
[facility] 12/22/17 0849: Subjective Follow-up For: Catheter related UTI. 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 Patient remained afebrile. Seen and examined this morning. He denied any chest pain, short of breath, nausea and dysuria. Patient is not speaking much but he replies "yes or no. This morning I saw the patient when he was eating his breakfast. He is tolerating oral food without any difficulty or cough while eating. Nursing staff is reluctant to remove victoria 's. I placed the urology consult and urology will take care of victoria's catheter. Review of Systems Constitutional: Reports: weakness. Denies: chills, fever. EENTM: Reports: no symptoms. Cardiovascular: Denies: chest pain, palpitations. Respiratory: Denies: cough, short of breath, sputum production. Gastrointestinal: Denies: abdominal pain, constipation, nausea, vomiting. Genitourinary: Reports: see HPI. Neurological/Psychological: Reports: no symptoms. Objective Last 24 Hrs of Vital Signs/I&O Vital Signs Date Time Temp Pulse Resp B/P B/P Pulse O2 O2 Flow FiO2 Mean Ox Delivery Rate 12/22 0840 98.2 74 16 130/68 05/07 0631 98.2 74 16 130/68 97 Room Air / 2204 98.5 88 18 144/64 98 Room Air 05/ 1500 98.6 72 20 120/60 97 Intake & Output 12/22 1600 / 0800 05/ 0000 Intake Total 700 400 Output Total 550 150 Balance 150 250 Intake, IV 600 300 Intake, Oral 100 100 Output, Urine 550 150 Physical Exam General Appearance: Alert, Cooperative Skin Temp/Moisture Exam: Warm/Dry Sepsis Skin Exam (color): Normal for Ethnicity HEENT: Atraumatic, EOMI Neck: Supple Cardiovascular: Normal S1, Normal S2 Lungs: Clear to Auscultation Abdomen: Soft, No Tenderness Neurological: Normal Speech, Sensation Intact Extremities: No Edema Assessment/Plan Assessment: 87-year-old male with past medical history of end is a 27-year-old male with past medical history of 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 Seen the patient on general medicine floor for following problems: Altered mental status; -Possibly due to catheter related UTI or chronic colonization. Patient has multiple positive urine cultures in the past with same organism. -Difficult to interpret if its true infection or chronic colonization at this point. -Keep off antibiotics for now as recommended by ID. His meropenem was discontinued. -Patient needs urology consult for alternative to catheter maybe suprapubic cystostomy to prevent chronic colonization or recurrent infections. -Follow-up urology recommendations. Generalized deconditioning and weakness; -Possibly due to infection if it's true infection. Or decreased oral intake considering patient's advanced dementia. -Gentle IV fluid hydration because of low oral intake -Aspiration precautions -Fall precautions -Patient needs help while eating. -PT recommendations, possible needs STR placement. History of hypertension: -Continue metoprolol and hydrochlorothiazide History of dementia: -Continue donepezil History of Parkinson disease: -Continue levodopa and carbidopa History of BPH: -Continue finasteride DVT prophylaxis: Mechanical and cutaneous Lovenox CODE STATUS: DNR/intubation Problem List: 1. UTI (urinary tract infection) 2. Cystitis Pain Ratin Pain Location: none Pain Goal: Remain pain free Pain Plan: pain pathway Tomorrow's Labs & Rationales: cbc/bep Rayn PEREZ,Araceli 12/22/17 1202: Attending Review Statement Attending Statement Attending MD Statement: examined this patient, discuss w/resident/PA/LICENSED MORTGAGE LOAN OFFICER, agreed w/resident/PA/LICENSED MORTGAGE LOAN OFFICER, reviewed EMR data (avail), discussed with nursing, discussed with case mgmt, amended to note Attending Assessment/Plan: Patient seen and examined. In bed not in acute distress. Reluctant to respond to questioning but does answer questions appropriately. No issues overnight reported by nursing staff. Is currently afebrile hemodynamically stable. Laboratory data shows no leukocytosis. Urine cultures currently growing gram-negative rods and gram- positive cocci. Urine culture drawn from the ER 3 days prior to admission growing ESBL. He grew ESBL as well in October 2017, September 2018, April 2017. We do appreciate evaluation by the infectious disease service. There is very concerned that his current growth likely represents colonization given his chronic indwelling Victoria catheter. Recommendations noted to monitor patient off antibiotic therapy for now. We will also follow-up with the urology service regarding alternatives to permanent indwelling ureteral Victoria catheter.
[2017-12-22 08:52] LABS: ABSOLUTE BASOPHIL COUNT 0 /CUMM (0.0-0.2); ABSOLUTE EOSINOPHIL COUNT 0.1 /CUMM (0.0-0.7); ABSOLUTE GRANULOCYTE CT 4.1 /CUMM (1.4-6.5); ABSOLUTE MONOCYTE COUNT 0.3 /CUMM (0.10-0.60); BASOPHIL % 0.4 % (0.0-2.0); EOSINOPHIL % 1.6 % (0-5); GRANULOCYTE % 74.6 % (42.2-75.2); HEMATOCRIT 28.7 % (42-52); MEAN CORPUSCULAR HGB 28.9 PG (27.0-31.0); MEAN CORPUSCULAR HGB CONC 33.5 G/DL (33.0-37.0); MEAN CORPUSCULAR VOLUME 86.3 FL (80.0-94.0); MEAN PLATELET VOLUME 7.7 FL (7.4-10.4); PLATELET COUNT 196 /CUMM (130-400); RBC DISTRIBUTION WIDTH 14.9 % (11.5-14.5); RED BLOOD CELL CT 3.32 /CUMM (4.70-6.10); WHITE BLOOD CELL COUNT 5.6 /CUMM (4.8-10.8)
--- NOTE | 2017-12-22 10:30 | Cons- Infect Disease ---
General Information and HPI Consulting Request Date of Consult: 12/22/17 Requested By: Araceli Davis MD Reason for Consult: Urinary tract infection secondary to ESBL producing E. coli Source of Information: patient, old records Exam Limitations: dementia History of Present Illness: This is an 87-year-old man with a history of dementia, minimally verbal at baseline, hypertension, with a history of a CVA, BPH, with a history of urinary retention, first noted during his last hospitalization 2-1/2 years prior to admission for a subarachnoid bleed/subdural hematoma, at which time he was placed on Proscar and Flomax and discharged with a Pascal catheter, seen in the emergency room 4 times over the past 2-1/2 months for problems related to the Pascal catheter, treated with several courses of antibiotics and apparently maintained on Bactrim for the past month, with his last visit just 2 days prior to admission with the complaint of lower abdominal pain, with his Pascal catheter changed, with a CT of the abdomen and pelvis revealing possible stercoral colitis and with a urine culture sent at that time positive for greater than 100 ,000 colonies of ESBL producing E. coli sensitive to Gentamicin, Imipenem and Nitrofurantoin, admitted on December 20 after he was brought back to the emergency room with abdominal pain and altered mental status. On admission he was afebrile. Laboratory data revealed a white blood cell count of 7000, BUN/ creatinine 16 and 0.9, with normal liver enzymes, urinalysis 5-10 RBC/>[address] of the abdomen and pelvis revealed the Pascal catheter balloon inflated within the prostatic urethra, with bladder wall trabeculation with multiple outpouchings and intraluminal gas within the bladder, with no evidence of pyelonephritis or hydronephrosis and with a decreased rectal stool burden compared to the previous study. He was begun on Meropenem. His Pascal catheter was apparently replaced on the floor. He did have a temperature to 100.3 overnight but he has been otherwise afebrile and his white blood cell count has remained normal. He is unable to provide any history secondary to his underlying dementia but he denies any pain. Allergies/Medications Allergies: Coded Allergies: NO KNOWN ALLERGIES (NONE 12/21/17) Home Med List: Carbidopa/Levodopa (Sinemet 25-100 MG Tablet) 25 MG-100 MG TABLET 1 TAB PO TID parkinsonism (Reported) Donepezil HCl (Aricept) 5 MG TABLET 1 TAB PO QPM demetia (Reported) Ferrous Sulfate 325 MG (65 MG IRON) TABLET 1 TAB PO DAILY ANEMIA (Reported) Finasteride 5 MG TABLET 1 TAB PO DAILY bladder (Reported) Folic Acid 1 MG TABLET 1 TAB PO DAILY vitamins (Reported) Hydrochlorothiazide 12.5 MG TABLET 1 TAB PO DAILY HTN (Reported) Magnesium Hydroxide (Milk Of Magnesia) 400 MG/5 ML ORAL.SUSP 5 ML PO DAILY PRN CONSTIPATION (Reported) Metoprolol Succ XL (Toprol Xl) 50 MG TAB HTN (Reported) Potassium Chloride (Klor-Con 10) 10 MEQ TABLET.ER 1 TAB PO DAILY HYPOKALEMIA (Reported) Sennosides/Docusate Sodium (Senokot-S Tablet) 8.6 MG-50 MG TABLET 1 TAB PO BID PRN CONSTIPATION (Reported) Sulfamethoxazole/Trimethoprim (Bactrim Ds Tablet) 800 MG-160 MG TABLET 1 TAB PO BID UTI Past History Travel History Traveled to [place] past 21 day No Medical History Neurological: CVA, dementia EENT: NONE Cardiovascular: hypertension Respiratory: NONE Gastrointestinal: NONE Hepatic: NONE Renal: benign prost hyperplasia, urinary incontinence, RECURRENT UTI Musculoskeletal: NONE Psychiatric: NONE Endocrine: NONE Blood Disorders: NONE Cancer(s): NONE 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 Needs Assist: dressing. Ambulation: independent IADLs Needs Assist: shopping, housework, finances, food prep, telephone, transportation, medication admin. Review of Systems Comments Unobtainable Exam & Diagnostic Data Last 24 Hrs of Vital Signs/I&O Vital Signs Date Time Temp Pulse Resp B/P B/P Pulse O2 O2 Flow FiO2 Mean Ox Delivery Rate 12/22 0840 98.2 74 16 130/68 12/22 0631 98.2 74 16 130/68 97 Room Air 12/21 2204 98.5 88 18 144/64 98 Room Air 12/21 1500 98.6 72 20 120/60 97 Intake & Output 12/22 1600 12/22 0800 12/22 0000 Intake Total 700 400 Output Total 550 150 Balance 150 250 Intake, IV 600 300 Intake, Oral 100 100 Output, Urine 550 150 Physical Exam Other Physical Findings: He is lethargic but responsive, in no acute distress. He is afebrile. Skin reveals no rash. HEENT exam is negative. Neck is supple with no adenopathy. Lungs are clear. Heart regular rhythm with no murmur. Abdomen is soft, no obvious tenderness, with positive bowel sounds. Back no obvious CVA tenderness. Extremities no cyanosis, clubbing or edema. Neuro is without focality. Pascal catheter is in place. Last 24 Hours of Lab Results: Laboratory Tests 12/22 0701 Chemistry Sodium (137 - 145 mmol/L) 140 Potassium (3.5 - 5.1 mmol/L) 3.6 Chloride (98 - 107 mmol/L) 103 Carbon Dioxide (22 - 30 mmol/L) 30 Anion Gap (5 - 16) 7 BUN (9 - 20 mg/dL) 15 Creatinine (0.7 - 1.2 mg/dL) 0.8 Estimated GFR (>60 ml/min) > 60 BUN/Creatinine Ratio (7 - 25 %) 18.8 Hematology CBC w Diff NO MAN DIFF REQ WBC (4.8 - 10.8 /CUMM) 5.6 RBC (4.70 - 6.10 /CUMM) 3.32 L Hgb (14.0 - 18.0 G/DL) 9.6 L Hct (42 - 52 %) 28.7 L MCV (80.0 - 94.0 FL) 86.3 MCH (27.0 - 31.0 PG) 28.9 MCHC (33.0 - 37.0 G/DL) 33.5 RDW (11.5 - 14.5 %) 14.9 H Plt Count (130 - 400 /CUMM) 196 MPV (7.4 - 10.4 FL) 7.7 Gran % (42.2 - 75.2 %) 74.6 Lymphocytes % (20.5 - 51.1 %) 17.2 L Monocytes % (1.7 - 9.3 %) 6.2 Eosinophils % (0 - 5 %) 1.6 Basophils % (0.0 - 2.0 %) 0.4 Absolute Granulocytes (1.4 - 6.5 /CUMM) 4.1 Absolute Lymphocytes (1.2 - 3.4 /CUMM) 1.0 L Absolute Monocytes (0.10 - 0.60 /CUMM) 0.3 Absolute Eosinophils (0.0 - 0.7 /CUMM) 0.1 Absolute Basophils (0.0 - 0.2 /CUMM) 0 Last 24 Hours of Vito Results: Blood cultures December 21 negative Urine culture December 21 approximately 80,000 colonies of gram-negative rods and approximately 40,000 colonies of gram-positive cocci Urine culture December 18 greater than 100,000 colonies of ESBL producing E. coli sensitive to Gentamicin, Imipenem and Nitrofurantoin Diagnostic Data Recent Imaging Findings: CT of the abdomen and pelvis with contrast December 20 reveals the Pascal catheter balloon inflated within the prostatic urethra; bladder wall trabeculation with multiple outpouchings along the anterior/cephalad margin, with intraluminal gas within the bladder; no evidence of polynephritis or hydronephrosis; borderline rectal wall thickening Assessment/Plan Assessment/Plan Impression: This is an 87-year-old man with a history of dementia, minimally verbal at baseline, BPH, with a history of urinary retention, with a chronic indwelling Pascal catheter, with multiple positive urine cultures over the past few months, apparently maintained on Bactrim for the past month, admitted on December 20 with abdominal pain and altered mental status, found initially to be afebrile with a normal white blood cell count and pyuria and with a CT of the abdomen and pelvis revealing the Pascal catheter balloon inflated within the prostatic urethra. The significance of the positive urine cultures is unclear. They most likely represent colonization secondary to the indwelling Pascal catheter, but it can be difficult to distinguish colonization from a true infection in a demented patient with a Pascal catheter. He did apparently report lower abdominal pain but this is difficult to interpret, and the malposition of the catheter (in the prostatic urethra) after its last replacement 2 days prior to admission could be contributing. His Pascal has apparently been replaced after admission. He did have a low-grade fever on the night after admission but he has been afebrile since and his white blood cell count has remained normal. Am reluctant to commit him to a 2 week course of IV antibiotics, which would likely be necessary given the isolation of ESBL producing E. coli from his recent urine culture, with his repeat urine culture also growing what appears to be Enterococcus. Alternatives to the Pascal catheter include straight catheterization or suprapubic cystostomy should be considered in place of the Pascal catheter to reduce the incidence of bacteriuria and other Pascal related complications. Suggestion: 1. Urology evaluation for alternatives to the Pascal catheter 2. Remove Pascal catheter and initiate a straight cath protocol pending above 3. Discontinue Meropenem and follow off antibiotics pending above Consult Acknowledgment - Thank you for your consult request.
[2017-12-22 13:59] VITALS: BP 136/80
--- NOTE | 2017-12-22 19:39 | Cons- Urology ---
General Information and HPI Consulting Request Date of Consult: 12/22/17 Requested By: Araceli Davis MD Reason for Consult: Complicated UTI Source of Information: old records Exam Limitations: unable to give history, dementia History of Present Illness: This patient has urinary retention and has been managed with an indwelling victoria for over 1 year. It is not clear if he has been followed by a urologist. He presented to the ER with lethargy on 12/18 and urine culture was done. He returned on 12/20 with altered mentall status and did have a low grade fever at one point. Urine culture from the first visit grew an ESBL organism, not entirely clear if this is colonization or true infection. He has been started on meropenum.\ CT scan shows no hydronephrosis and no evidence of pyelonephritis. The victoria balloon was in the prostatic urethra and according to the chart that victoria was removed and a new one placed which is draining well. Allergies/Medications Allergies: Coded Allergies: NO KNOWN ALLERGIES (NONE 12/21/17) Home Med List: Carbidopa/Levodopa (Sinemet 25-100 MG Tablet) 25 MG-100 MG TABLET 1 TAB PO TID parkinsonism (Reported) Donepezil HCl (Aricept) 5 MG TABLET 1 TAB PO QPM demetia (Reported) Ferrous Sulfate 325 MG (65 MG IRON) TABLET 1 TAB PO DAILY ANEMIA (Reported) Finasteride 5 MG TABLET 1 TAB PO DAILY bladder (Reported) Folic Acid 1 MG TABLET 1 TAB PO DAILY vitamins (Reported) Hydrochlorothiazide 12.5 MG TABLET 1 TAB PO DAILY HTN (Reported) Magnesium Hydroxide (Milk Of Magnesia) 400 MG/5 ML ORAL.SUSP 5 ML PO DAILY PRN CONSTIPATION (Reported) Metoprolol Succ XL (Toprol Xl) 50 MG TAB HTN (Reported) Potassium Chloride (Klor-Con 10) 10 MEQ TABLET.ER 1 TAB PO DAILY HYPOKALEMIA (Reported) Sennosides/Docusate Sodium (Senokot-S Tablet) 8.6 MG-50 MG TABLET 1 TAB PO BID PRN CONSTIPATION (Reported) Sulfamethoxazole/Trimethoprim (Bactrim Ds Tablet) 800 MG-160 MG TABLET 1 TAB PO BID UTI Current Medications: Current Medications Sig/Guido Start time Last Medication Dose Route Stop Time Status Admin Acetaminophen 325 MG Q6 PRN 12/20 2315 AC PO Carbidopa/Levodopa 1 TAB TID 12/21 1400 AC 12/22 PO 1400 Donepezil HCl 5 MG QPM 12/21 2100 AC 12/21 PO 2054 Enoxaparin Sodium 40 MG DAILY 12/21 899 AC 12/22 SC 0841 Ferrous Sulfate 325 MG DAILY 12/22 899 AC 12/22 PO 0840 Finasteride 5 MG DAILY 12/21 1107 AC 12/22 PO 0840 Hydrochlorothiazide 12.5 MG DAILY 12/22 899 AC 12/22 PO 0840 Magnesium Hydroxide 30 ML DAILY NEEDED PRN 12/21 1130 AC PO Meropenem 1 GM IQ8 12/21 0800 DC 12/22 IV 0840 Metoprolol Succinate 50 MG DAILY 12/22 899 AC 12/22 PO 0840 Potassium Chloride 20 MEQ ONCE ONE 12/22 1200 DC PO 12/22 1201 Potassium Chloride 10 MEQ DAILY 12/22 899 AC 12/22 PO 0840 Senna/Docusate Sodium 1 TAB BID PRN 12/21 1115 AC PO Sodium Chloride 1,000 ML Q13H 12/21 0045 AC 12/22 IV 1916 Past History Medical History Neurological: CVA, dementia EENT: NONE Cardiovascular: hypertension Respiratory: NONE Gastrointestinal: NONE Hepatic: NONE Renal: benign prost hyperplasia, urinary incontinence, RECURRENT UTI Musculoskeletal: NONE Psychiatric: NONE Endocrine: NONE Blood Disorders: NONE Cancer(s): NONE 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 Needs Assist: dressing. Ambulation: independent IADLs Needs Assist: shopping, housework, finances, food prep, telephone, transportation, medication admin. Exam & Diagnostic Data Vital Signs and I&O Vital Signs Date Time Temp Pulse Resp B/P B/P Pulse O2 O2 Flow FiO2 Mean Ox Delivery Rate 12/22 1359 98.0 69 20 136/80 96 Room Air 12/22 0840 98.2 74 16 130/68 12/22 0631 98.2 74 16 130/68 97 Room Air 12/21 2204 98.5 88 18 144/64 98 Room Air Intake & Output 12/22 1600 12/22 0000 12/21 1600 12/21 0000 Intake Total 939 645 5990 300 Output Total 600 550 628 893 7144 400 Balance -600 150 250 305 -700 -400 Intake, IV 600 300 300 Intake, Oral [phone] Number 1 Bowel Movements Output, Urine 600 550 552 845 8020 400 Patient 131 lb 131 lb Weight Weight Bed scale Bed scale Measurement Method Minimally responsive Back: no CVA tenderness Abd: soft and non tender Genitalia: normal male with victoria in place, draining clear urine Laboratory Tests 12/22 700 Chemistry Sodium (137 - 145 mmol/L) 140 Potassium (3.5 - 5.1 mmol/L) 3.6 Chloride (98 - 107 mmol/L) 103 Carbon Dioxide (22 - 30 mmol/L) 30 Anion Gap (5 - 16) 7 BUN (9 - 20 mg/dL) 15 Creatinine (0.7 - 1.2 mg/dL) 0.8 Estimated GFR (>60 ml/min) > 60 BUN/Creatinine Ratio (7 - 25 %) 18.8 Hematology CBC w Diff NO MAN DIFF REQ WBC (4.8 - 10.8 /CUMM) 5.6 RBC (4.70 - 6.10 /CUMM) 3.32 L Hgb (14.0 - 18.0 G/DL) 9.6 L Hct (42 - 52 %) 28.7 L MCV (80.0 - 94.0 FL) 86.3 MCH (27.0 - 31.0 PG) 28.9 MCHC (33.0 - 37.0 G/DL) 33.5 RDW (11.5 - 14.5 %) 14.9 H Plt Count (130 - 400 /CUMM) 196 MPV (7.4 - 10.4 FL) 7.7 Gran % (42.2 - 75.2 %) 74.6 Lymphocytes % (20.5 - 51.1 %) 17.2 L Monocytes % (1.7 - 9.3 %) 6.2 Eosinophils % (0 - 5 %) 1.6 Basophils % (0.0 - 2.0 %) 0.4 Absolute Granulocytes (1.4 - 6.5 /CUMM) 4.1 Absolute Lymphocytes (1.2 - 3.4 /CUMM) 1.0 L Absolute Monocytes (0.10 - 0.60 /CUMM) 0.3 Absolute Eosinophils (0.0 - 0.7 /CUMM) 0.1 Absolute Basophils (0.0 - 0.2 /CUMM) 0 Assessment/Plan Assessment/Plan Imp: 1. Urinary retention. Likely multifactorial 2. UTI vs colonization due to indwelling victoria 3. Multiple medical issues noted above Plan: 1. Patient is not a candidate for surgery for BPH 2. Agree with Dr Hannon that intermittent cath is less of a risk for UTI than indwelling victoria and would consider removing victoria tomorrow AM and str cath q 8 hours. Hopefully this could be continued as an outpatient at his facility 3. If intermittent cath does not work out suprapubic tube insertion can be done. Would need to discuss with family if it comes to that 4. Will defer antibiotic plan to Dr Hannon Consult Acknowledgment - Thank you for your consult request.
[2017-12-22 22:09] VITALS: BP 160/70
[2017-12-23 06:22] VITALS: BP 150/76
--- NOTE | 2017-12-23 06:28 | Patient Discharge Instructions ---
Discharge Instructions General Discharge Information You were seen/treated for: AMS Generalized deconditioning. S/P suprapubic catheterization Watch for these problems: Altered mental status, dizziness, chest pain, pus in urine, lower abdominal pain , fever, chills and vomiting. If you experience any of these symptoms please come to ED or call to pcp. Special Instructions: Follow up with pcp in one week. Follow up with urology in one week. Diet Recommended Diet: Regular Activity Activity Self Limited: Yes Acute Coronary Syndrome Inclusion Criteria At DC or during hospital stay patient has or had the following: ACS DIAGNOSIS No Discharge Core Measures Meds if any: Prescribed or Continued at Discharge Meds if any: NOT Prescribed or Continued at Discharge Congestive Heart Failure Inclusion Criteria At DC or during hospital stay patient has or had the following: CHF DIAGNOSIS No Discharge Core Measures Meds if any: Prescribed or Continued at Discharge Meds if any: NOT Prescribed or Continued at Discharge Cerebrovascular accident Inclusion Criteria At DC or during hospital stay patient has or had the following: CVA/TIA Diagnosis No Discharge Core Measures Meds if any: Prescribed or Continued at Discharge Meds if any: NOT Prescribed or Continued at Discharge Venous thromboembolism Inclusion Criteria VTE Diagnosis No VTE Type NONE VTE Confirmed by (Test) NONE Discharge Core Measures - Per Current guidelines, there needs to be overlap - treatment for the first 5 days of Warfarin therapy. - If discharged on Warfarin prior to 5 days of - overlap therapy, the patient will need to be - assessed for post discharge needs including - *Post discharge parental anticoagulation - *Warfarin and/or parental anticoagulation education - *Follow up date to check INR post discharge At least 5 days overlap therapy as Inpatient No Meds if any: Prescribed or Continued at Discharge Note: Overlap Therapy is Warfarin and Anticoagulant Meds if any: NOT Prescribed or Continued at Discharge
--- NOTE | 2017-12-23 07:24 | PN- Housestaff ---
[facility] 0723: Subjective Follow-up For: Catheter related UTI. Recurrent ESBL in urine Generalized deconditioning Subjective: Overnight events. Patient remained afebrile but. Seen and examined this morning. Patient is not talking much he was answering yes and no. He denied any chest pain, palpitation, abdominal pain and dysuria. Nursing staff reported that patient has cough while eating breakfast this morning so we will monitor him if he has cough again during eating then we will get swallow eval to see his having aspiration. Review of Systems Constitutional: Denies: chills, fever. EENTM: Reports: no symptoms. Cardiovascular: Denies: chest pain, palpitations. Respiratory: Denies: cough, short of breath, sputum production. Gastrointestinal: Denies: abdominal pain, diarrhea, nausea. Genitourinary: Reports: no symptoms. Neurological/Psychological: Reports: no symptoms. Objective Last 24 Hrs of Vital Signs/I&O Vital Signs Date Time Temp Pulse Resp B/P B/P Pulse O2 O2 Flow FiO2 Mean Ox Delivery Rate 12/23 0843 97.5 62 20 150/76 12/23 0622 97.5 62 20 150/76 96 Room Air 12/22 2209 98.7 83 20 160/70 96 Room Air 12/22 1359 98.0 69 20 136/80 96 Room Air Intake & Output 12/23 1600 12/23 0800 12/23 0000 Intake Total 720 840 Output Total 1700 475 Balance -980 365 Intake, IV 600 600 Intake, Oral 120 240 Output, Urine 1700 475 Physical Exam General Appearance: Alert, Cooperative Skin Temp/Moisture Exam: Warm/Dry Sepsis Skin Exam (color): Normal for Ethnicity HEENT: Atraumatic, EOMI Cardiovascular: Normal S1, Normal S2 Lungs: Clear to Auscultation, decreased breath sounds b/l Abdomen: Soft, No Tenderness Neurological: Normal Tone Extremities: No Edema Assessment/Plan Assessment: 87-year-old male with past medical history of end is a 27-year-old male with past medical history of 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 Seen the patient on general medicine floor for following problems: Altered mental status; -Possibly due to catheter related UTI or chronic colonization. Patient has multiple positive urine cultures in the past with same organism. -Difficult to interpret if its true infection or chronic colonization at this point. -Keep off antibiotics for now as recommended by id. -Patient having hypospadia and from home so staright cath will be difficult to do. Urology will speak to his son if he agrees for suprapubic cystostomy then victoria's will be removed and suprapubic cystostomy will be done. -Follow-up urology recommendations. Generalized deconditioning and weakness; -Possibly due to infection if it's true infection. Or decreased oral intake considering patient's advanced dementia. -Gentle IV fluid hydration because of low oral intake -Aspiration precautions -Fall precautions -Patient needs help while eating. We will get swallow eval if patient has cough while eating. -PT recommended home self care. History of hypertension: -Continue metoprolol and hydrochlorothiazide History of dementia: -Continue donepezil History of Parkinson disease: -Continue levodopa and carbidopa History of BPH: -Continue finasteride DVT prophylaxis: Mechanical and cutaneous Lovenox CODE STATUS: DNR/intubation Problem List: 1. Weakness 2. Victoria catheter problem 3. Altered mental status Pain Ratin Pain Location: none Pain Goal: Remain pain free Pain Plan: pain pathway Tomorrow's Labs & Rationales: none Ryan PEREZ,Araceli 12/23/17 1432: Attending MD Review Statement Attending Statement Attending Statement: examined this patient, discuss w/resident/PA/CURVE SAW OPERATOR, agreed w/resident/PA/CURVE SAW OPERATOR, reviewed EMR data (avail), discussed with nursing, discussed with case mgmt, amended to note Attending Assessment/Plan: Patient seen and examined. Resting comfortably not in acute distress. Overnight also staff reports that he was pulling out his IV lines. He was briefly put on restraints then this was discontinued. Currently resting comfortably. He does not talk with the medical team when we around but he does answer questions when asked by his nurse. She reports that this is the patient' s usual demeanor. He has remained afebrile and hemodynamically stable. He is off antibiotic therapy as recommended by the ID service. It is presumed that the bacterial growth in his urine is secondary to colonization. Urology service is recommending intermittent catheterization. If this is not feasible a suprapubic catheter would be indicated in order to decrease the risk of recurrent urinary tract infections. We will follow-up with the patient's son regarding whether he would consent for this procedure. If so we will follow-up with the urology service for timing of the procedure. Further disposition will be decided at that time. For now we will continue to monitor patient off antibiotic therapy. Nursing staff has been encouraged to mobilize the patient.
--- NOTE | 2017-12-23 10:29 | PN- Infect Dx ---
Subjective Subjective: Afebrile without complaints Objective Last 24 Hrs of Vital Signs/I&O Vital Signs Date Time Temp Pulse Resp B/P B/P Pulse O2 O2 Flow FiO2 Mean Ox Delivery Rate 12/24 0743 97.5 62 20 150/76 12/23 0622 97.5 62 20 150/76 96 Room Air 12/22 2209 98.7 83 20 160/70 96 Room Air 12/22 1359 98.0 69 20 136/80 96 Room Air Intake & Output 12/23 1600 12/23 0800 12/23 0000 Intake Total 720 840 Output Total 1700 475 Balance -980 365 Intake, IV 600 600 Intake, Oral 120 240 Output, Urine 1700 475 Physical Exam Other Physical Findings: He appears comfortable in no acute distress Lungs are clear Heart regular rhythm without murmur Abdomen is soft, nontender with positive bowel sounds Back no CVA tenderness hypospadia, with Pascal catheter in place Results Last 24 Hours of Lab Results: Laboratory Tests 12/24 719 Chemistry Sodium (137 - 145 mmol/L) 141 Potassium (3.5 - 5.1 mmol/L) 3.7 Chloride (98 - 107 mmol/L) 104 Carbon Dioxide (22 - 30 mmol/L) 30 Anion Gap (5 - 16) 7 BUN (9 - 20 mg/dL) 11 Creatinine (0.7 - 1.2 mg/dL) 0.7 Estimated GFR (>60 ml/min) > 60 BUN/Creatinine Ratio (7 - 25 %) 15.7 Last 24 Hours of Vito Results: Blood cultures December 21 negative Urine culture December 21 approximately 80,000 colonies of ESBL producing E. coli and approximately 40,000 colonies of Enterococcus Assessment/Plan ID Impression: Stable, with temperatures and white blood cell count normal, now off antibiotics , with a positive urine culture most likely secondary to colonization from the indwelling Pascal catheter. Straight catheterization may not be feasible given his hypospadia and the fact that he is living at home (rather than a shelter) and a suprapubic cystostomy may be more reasonable. Have discussed with Urology who will discuss with patient's son and, if he is agreeable, schedule for later this week. Suggestion: 1. Await decision regarding suprapubic cystostomy 2. Continue to follow off antibiotics pending above
--- NOTE | 2017-12-23 11:51 | Discharge Summary ---
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 ED course: Vitals: Temperature 97.8, pulse 69, respiratory rate 16, blood pressure 173/79, oxygen saturation 94% on room air. Labs: WBC count 7.2, hemoglobin 11.0, crit 33.2, platelet count 223, sodium 143, potassium 3.6, BUN 16, creatinine 0.9, BUN/creatinine ratio 17.8, glucose 105, calcium 8.8, AST 17, ALT 12 Altered mental status: Patient was admitted with altered mental status, not sure it was due to his progressive dementia or due to delirium secondary to dehydration. Patient also has a chronic Pascal's catheter for urinary retention and his urine cultures are always positive with ESBL Escherichia coli initially patient was treated for catheter associated UTI with meropenem. ID consult was obtained and recommendations were followed. His urine culture came back positive with Escherichia coli ESBL and enterococci. It was not sure at that point that this positive cultures are due to chronic colonization as patient is always positive with ESBL Escherichia coli or it ture infection. ID recommended to discontinue antibiotics and keep patient off antibiotics. Patient remained afebrile and his WBC count remained within normal limits. ID suggested for alternate Pascal's catheter possible suprapubic catheter placement to prevent chronic colonization or recurrent infections. As straight cath was not feasible for patient considering his hypospadiasis. Urology also agreed with the plan and talk to his son about the plan. Family and his regular urologist were agreed to plan of placing suprapubic catheter to prevent chronic colonization and recurrent UTI related to Pascal's catheter. After the procedure patient remained stable and his H&H remained stable. Patient was discharged and instructed to follow his urologist and primary care physician. Generalized deconditioning and weakness: Patient had an deconditioning probably due to his progressive dementia and decreased oral intake. Initially fall precaution and aspiration precautions were taken. IV hydration was done. Later on patient condition started to improve and oral intake was encouraged. Gradually patient's appetite improved and he was tolerating oral fluids and diet. He didn't have any difficulty in eating or any cough during eating. PT evaluation was obtained and they recommended home health services for patient. Patient was instructed to follow his primary care physician after discharge. History of hypertension: Continue metoprolol and hydrochlorothiazide. During hospital stay patient's blood pressure remained within normal limits. History of dementia: Continued donepezil History of Parkinson disease: Continued levodopa and carbidopa History of BPH: Continued finasteride. DVT prophylaxis: Mechanical and cutaneous Lovenox CODE STATUS: DNR/intubation Allergies: Coded Allergies: NO KNOWN ALLERGIES (NONE 12/21/17) Pertinent Lab Results: CT scan abdomen and pelvis on 12/20/2017: IMPRESSION: 1. The Pascal catheter balloon is inflated within the prosthetic urethra. 2. Bladder wall trabeculation with multiple outpouchings along the anterior/cephalad margin. Intraluminal gas within the bladder. Findings are suspicious for sequela of cystitis. 3. No CT evidence of pyelonephritis. No hydronephrosis. 4. Borderline rectal wall thickening. The volume of rectal stool burden has decreased compared to prior exam. Diverticulosis. 5. Other non-acute findings as above. WBC count 5.6, hemoglobin 9.6, hematocrit 28.7, platelet count 196, sodium 141, potassium 3.7, BUN 11, creatinine 0.7 Disposition Summary Disposition Principal Diagnosis: Altered mental status Catheter associated UTI or chronic colonization Generalized deconditioning Additional Diagnosis: History of dementia History of hypertension History of Parkinson disease History of BPH Discharge Disposition: home health services Discharge Instructions General Discharge Information Code Status: Do Not Resucitate/Intubat Patient's Diet: Regular diet Patient's Activity: Self limited Follow-Up Instructions/Appts: Follow up with pcp in one week. Follow up with urology in one week. Medications at Discharge Discharge Medications: Stop taking the following medications: Sulfamethoxazole/Trimethoprim (Bactrim Ds Tablet) 800 MG-160 MG TABLET ORAL TWICE DAILY Qty = 14 Continue taking these medications: Carbidopa/Levodopa (Sinemet 25-100 MG Tablet) 25 MG-100 MG TABLET 1 Tablet ORAL THREE TIMES DAILY Donepezil HCl (Aricept) 5 MG TABLET 1 Tablet ORAL Every night Finasteride (Finasteride) 5 MG TABLET 1 Tablet ORAL DAILY Folic Acid (Folic Acid) 1 MG TABLET 1 Tablet ORAL DAILY Hydrochlorothiazide (Hydrochlorothiazide) 12.5 MG TABLET 1 Tablet ORAL DAILY Metoprolol Succ XL (Toprol Xl) 50 MG TAB Milligram ORAL DAILY Potassium Chloride (Klor-Con 10) 10 MEQ TABLET.ER 1 Tablet ORAL DAILY Ferrous Sulfate (Ferrous Sulfate) 325 MG (65 MG IRON) TABLET 1 Tablet ORAL DAILY Magnesium Hydroxide (Milk Of Magnesia) 400 MG/5 ML ORAL.SUSP 5 Milliliters ORAL DAILY as needed for CONSTIPATION Sennosides/Docusate Sodium (Senokot-S Tablet) 8.6 MG-50 MG TABLET 1 Tablet ORAL TWICE DAILY as needed for CONSTIPATION Copies To: Yue PEREZ,Iban Stern Attending MD Review Statement Documenting Attending: Araceli Davis MD Other Findings: Patient is medically stable to be discharged today.
[2017-12-23 15:12] VITALS: BP 152/72
[2017-12-23 22:00] VITALS: BP 144/82
[2017-12-24 06:03] VITALS: BP 148/80
--- NOTE | 2017-12-24 06:59 | PN- Housestaff ---
[facility]659: Subjective Follow-up For: AMS Catheter related UTI or chronic colonization. Generalized deconditioning Subjective: No overnight events. Patient remained afebrile. seen and examined this morning. Patient is applying just yes and no. Overnight he remained calm. His restraints for discontinued yesterday. Patient having chronic folate catheter. Yesterday I spoke to his son. He told me that he will talk to Dr. Louie and his regular urologist. If his regular urologist and agrees with the plan for suprapubic cystostomy then he will go with that. Review of Systems Constitutional: Denies: chills, fever. EENTM: Reports: no symptoms. Cardiovascular: Denies: chest pain, palpitations. Respiratory: Denies: cough, short of breath, sputum production. Gastrointestinal: Denies: abdominal pain, nausea, vomiting. Genitourinary: Reports: no symptoms. Neurological/Psychological: Reports: no symptoms. Objective Last 24 Hrs of Vital Signs/I&O Vital Signs Date Time Temp Pulse Resp B/P B/P Pulse O2 O2 Flow FiO2 Mean Ox Delivery Rate 12/24 0603 97.6 59 20 148/80 97 Room Air 12/24 0000 94 Room Air 12/23 2200 97.5 64 20 144/82 94 12/23 1512 98.9 58 20 152/72 96 Room Air / 0843 97.5 62 20 150/76 Intake & Output 12/24 1600 12/24 0800 12/24 0000 Intake Total 740 Output Total 2835 1800 Balance -2835 -1060 Intake, IV 600 Intake, Oral 140 Output, Urine 2835 1800 Physical Exam General Appearance: Alert, Cooperative Skin Temp/Moisture Exam: Warm/Dry Sepsis Skin Exam (color): Normal for Ethnicity HEENT: Atraumatic, EOMI Neck: Supple Cardiovascular: Normal S1, Normal S2 Lungs: Clear to Auscultation Abdomen: Soft, No Tenderness Neurological: Normal Tone Extremities: No Edema Assessment/Plan Assessment: 87 YO M with PMH of dementia(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 Seeing the patient on general medicine floor for following problems: Altered mental status:(improving) -Possibly due to catheter related UTI or chronic colonization. Patient has multiple positive urine cultures in the past with same organism. -Difficult to interpret if its true infection or chronic colonization at this point. -Keep off antibiotics for now as recommended by id. -Patient having hypospadia and from home so staright cath will be difficult to do. Urology will speak to his son if he agrees for suprapubic cystostomy then victoria's will be removed and suprapubic cystostomy will be done. -Follow-up urology recommendations. Generalized deconditioning and weakness: -Possibly due to infection if it's true infection. Or decreased oral intake considering patient's advanced dementia. -Patient has good appetite and he is tolerating oral fluids and diet so we will discontinue his fluids. -Aspiration precautions -Fall precautions -Patient needs help while eating. We will get swallow eval if patient has cough while eating. -PT recommended home self care. History of hypertension: -Continue metoprolol and hydrochlorothiazide History of dementia: -Continue donepezil History of Parkinson disease: -Continue levodopa and carbidopa History of BPH: -Continue finasteride DVT prophylaxis: Mechanical and cutaneous Lovenox CODE STATUS: DNR/intubation Problem List: 1. Altered mental status 2. Weakness Pain Ratin Pain Location: none Pain Goal: Remain pain free Pain Plan: pain pathway Tomorrow's Labs & Rationales: none Ryan PEREZ,Araceli 12/24/17 1242: Attending MD Review Statement Attending Statement Attending MD Statement: examined this patient, discuss w/resident/PA/MOLD MAKER APPRENTICE, agreed w/resident/PA/MOLD MAKER APPRENTICE, reviewed EMR data (avail), discussed with nursing, discussed with case mgmt, amended to note Attending Assessment/Plan: Patient seen and examined. Resting comfortably and not in any acute distress. He remains afebrile and hemodynamically stable off antibiotics. Follow up by the urology service appreciated. Supra-pubic catheter placed is being scheduled for friday. WIll follow up with ID regarding pre-operative abx therapy. Nursing staff encouraged to ambulate patient.
--- NOTE | 2017-12-24 07:54 | PN- Urology ---
Subjective Subjective: Resting comfortably Objective Vital Signs and I&Os Vital Signs Date Time Temp Pulse Resp B/P B/P Pulse O2 O2 Flow FiO2 Mean Ox Delivery Rate 12/24 0603 97.6 59 20 148/80 97 Room Air 12/24 0000 94 Room Air 12/23 2200 97.5 64 20 144/82 94 12/23 1512 98.9 58 20 152/72 96 Room Air 12/23 0843 97.5 62 20 150/76 Intake & Output 12/24 0000 12/23 1600 12/23 0800 12/23 0000 12/22 1600 Intake Total 740 420 720 840 Output Total 2835 3939 967 9205 475 600 Balance -2835 -1060 -280 -980 365 -600 Intake, IV 600 600 600 Intake, Oral 140 420 120 240 Output, Urine 2835 7764 811 2090 475 600 Abd: soft and non tender Genitalia: victoria in place. Draining clear urine. Hypospadias Assessment/Plan Assessment/Plan Imp: 1. Urinary retention. Managed with victoria 2. ? UTI vs colonization Plan: 1. Intermittent cath not practical given home situation 2. Discussed with son suprapubic tube placement. He wants me to confer with his usual urologist in [place] before deciding. I will attempt to do this today 3. If they agree to suprapubic tube it will likely be on Friday
--- NOTE | 2017-12-24 12:47 | PN- Infect Dx ---
Subjective Subjective: Afebrile without complaints Objective Last 24 Hrs of Vital Signs/I&O Vital Signs Date Time Temp Pulse Resp B/P B/P Pulse O2 O2 Flow FiO2 Mean Ox Delivery Rate 12/25 0739 97.6 59 20 148/80 12/24 0603 97.6 59 20 148/80 97 Room Air 12/24 0000 94 Room Air 12/23 2200 97.5 64 20 144/82 94 12/23 1512 98.9 58 20 152/72 96 Room Air Intake & Output 12/24 1600 12/24 0800 12/24 0000 Intake Total 740 Output Total 2835 1800 Balance -2835 -1060 Intake, IV 600 Intake, Oral 140 Output, Urine 2835 1800 Physical Exam Other Physical Findings: He appears comfortable in no acute distress Abdomen is soft, nontender with positive bowel sounds Pascal catheter remains in place Results Last 24 Hours of Lab Results: Laboratory Tests 12/24 719 Chemistry Sodium (137 - 145 mmol/L) 141 Potassium (3.5 - 5.1 mmol/L) 3.7 Chloride (98 - 107 mmol/L) 104 Carbon Dioxide (22 - 30 mmol/L) 30 Anion Gap (5 - 16) 7 BUN (9 - 20 mg/dL) 11 Creatinine (0.7 - 1.2 mg/dL) 0.7 Estimated GFR (>60 ml/min) > 60 BUN/Creatinine Ratio (7 - 25 %) 15.7 Last 24 Hours of Vito Results: Urine culture December 21 approximately 80,000 colonies of ESBL producing E. coli sensitive to Gentamicin, Meropenem and Nitrofurantoin and approximately 40,000 colonies of Enterococcus sensitive to Ampicillin Blood cultures 2 December 21 negative Assessment/Plan ID Impression: Stable, with temperatures and white blood cell count remaining normal, off antibiotics, with the urine culture from admission positive for ESBL producing E. coli and Enterococcus, most likely representing colonization from the indwelling Pascal catheter. He is tentatively scheduled for a suprapubic cystostomy later this week. Suggestion: 1. Await placement of the suprapubic cystostomy, possibly on December 26 2. If antibiotic prophylaxis is felt to be necessary would give 1 dose of Meropenem 1 g IV 1 prior to the procedure
[2017-12-24 14:05] VITALS: BP 134/64
[2017-12-24 22:49] VITALS: BP 144/64
[2017-12-25 06:20] VITALS: BP 148/76
--- NOTE | 2017-12-25 07:09 | PN- Housestaff ---
VenuJames 12/25/17 0709: Subjective Follow-up For: Generalized deconditioning Altered mental status (improved) Constipation Subjective: No overnight events. Patient remained afebrile. seen and examined this morning. Patient was complaining of abdominal pain on the left side possibly due to constipation. He didn't apply to the rest of the questions today. Review of Systems Constitutional: Reports: see HPI. Objective Last 24 Hrs of Vital Signs/I&O Vital Signs Date Time Temp Pulse Resp B/P B/P Pulse O2 O2 Flow FiO2 Mean Ox Delivery Rate 12/25 0930 98.1 65 20 148/76 05 0620 98.1 65 20 148/76 96 Room Air 12/24 2249 97.6 69 20 144/64 95 Room Air 12/24 1405 98.1 62 20 134/64 99 Room Air Intake & Output 12/25 1600 12/25 0800 12/25 0000 Intake Total 100 600 Output Total 850 450 Balance -750 150 Intake, Oral 100 600 Output, Urine 850 450 Physical Exam General Appearance: Alert, Cooperative Skin: No Rashes Skin Temp/Moisture Exam: Warm/Dry Sepsis Skin Exam (color): Normal for Ethnicity HEENT: Atraumatic, EOMI Neck: Supple Cardiovascular: Normal S1, Normal S2 Lungs: Clear to Auscultation Abdomen: Soft Neurological: Normal Tone Extremities: No Edema Assessment/Plan Assessment: 87 YO M with PMH of dementia(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 Seeing the patient on general medicine floor for following problems: Altered mental status:(improving) -Possibly due to catheter related UTI or chronic colonization. Patient has multiple positive urine cultures in the past with same organism. -Patient remained afebrile and his WBC count is within normal limits. -Difficult to interpret if its true infection or chronic colonization at this point. -Keep off antibiotics for now as recommended by id. -Patient having hypospadia and from home so staright cath will be difficult to do. Urology will speak to his son if he agrees for suprapubic cystostomy then victoria's will be removed and suprapubic cystostomy will be done. -We will keep him nothing by mouth from midnight for suprapubic cystostomy tomorrow. -We will hold his morning dose of Lovenox tomorrow morning. -We will give him 1 dose of meropenem before the procedure. -Follow-up urology recommendations. Generalized deconditioning and weakness: -Possibly due to infection if it's true infection. Or decreased oral intake considering patient's advanced dementia. -Patient has good appetite and he is tolerating oral fluids and diet so we will discontinue his fluids. -Aspiration precautions -Fall precautions -Patient needs help while eating. We will get swallow eval if patient has cough while eating. -PT recommended home self care. Constipation: -Patient was complaining of abdominal discomfort this morning. -We will continue laxatives -We will give him one lactulose enema. History of hypertension: -Continue metoprolol and hydrochlorothiazide History of dementia: -Continue donepezil History of Parkinson disease: -Continue levodopa and carbidopa History of BPH: -Continue finasteride DVT prophylaxis: Mechanical and cutaneous Lovenox CODE STATUS: DNR/intubation Problem List: 1. Altered mental status 2. Weakness 3. Constipation Pain Ratin Pain Location: none Pain Goal: Remain pain free Pain Plan: pain pathway Tomorrow's Labs & Rationales: none Araceli Davis MD 12/25/17 1127: Attending MD Review Statement Attending Statement Attending MD Statement: examined this patient, discuss w/resident/PA/WOMEN'S BASKETBALL COACH, agreed w/resident/PA/WOMEN'S BASKETBALL COACH, reviewed EMR data (avail), discussed with nursing, discussed with case mgmt, amended to note Attending Assessment/Plan: Patient seen and examined. No issues overnight reported by nursing staff. This morning he reports feeling unwell. He reports discomfort. On examination he has some left lower quadrant discomfort. No rebound. No guarding. Normal bowel sounds. Nursing staff reports abdominal bowel for several days. He does take bowel regimen [id number] at home. He remains afebrile and hemodynamically stable off antibiotic therapy. Yesterday he was noted to have petechial-like rash on both feet. Limited to the feet and presumed to be some reaction to socks he was wearing. Today the rash has improved. We will continue to monitor. Plan: -Optimize bowel regimen. -Awaiting suprapubic catheter placement tomorrow by the urology service. -Anticipate discharge home following the procedure. -Continue to monitor patient off antibiotic therapy.
--- NOTE | 2017-12-25 07:36 | PN- Urology ---
Subjective Subjective: Pt sleeping Objective Vital Signs and I&Os Vital Signs Date Time Temp Pulse Resp B/P B/P Pulse O2 O2 Flow FiO2 Mean Ox Delivery Rate 12/26 619 98.1 65 20 148/76 96 Room Air 12/24 2249 97.6 69 20 144/64 95 Room Air 12/24 1405 98.1 62 20 134/64 99 Room Air 12/24 0839 97.6 59 20 148/80 Intake & Output 12/25 0000 12/24 1600 12/24 0812/24 0000 12/23 1600 Intake Total 100 600 360 740 420 Output Total 769 817 4153 2835 1800 700 Balance -750 150 -640 -2835 -1060 -280 Intake, IV 600 Intake, Oral 100 600 360 140 420 Output, Urine 484 416 9389 2835 1800 700 Patient 131 lb Weight Abd: soft Genitalia: hypospadias, victoria in place draining well Assessment/Plan Assessment/Plan Imp: 1. 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 Yesterday I spoke with son again and patient's usual urologist. All are in agreement with suprapubic tube insertion. Will schedule for tomorrow. 2. Please keep npo after midnight tonight except for regular po meds with sip of water 3. Please hold lovenox dose tomorrow AM 4. Please give meropenum 1 gram IV manager environmental affairs to [place] tomorrow
[2017-12-25 14:14] VITALS: BP 130/62
[2017-12-25 22:30] VITALS: BP 124/64
[2017-12-26 06:45] VITALS: BP 132/76
--- NOTE | 2017-12-26 07:22 | PN- Housestaff ---
VenuJames 12/26/17 0721: Subjective Follow-up For: Generalized deconditioning(improved) Altered mental status(improved) Subjective: No overnight events. Patient remained afebrile but there is seen and examined this morning. Patient is not verbally responding well that's his baseline. He is just replyinh yes or no. Patient denied chest pain, short of breath, nausea, vomiting, abdominal pain. Patient is nothing by mouth and is going for suprapubic cystostomy as his family and primary urologist agreed with the plan. He was given preoperative dose of antibiotic. Review of Systems Constitutional: Reports: see HPI. Objective Last 24 Hrs of Vital Signs/I&O Vital Signs Date Time Temp Pulse Resp B/P B/P Pulse O2 O2 Flow FiO2 Mean Ox Delivery Rate 12/26 0814 64 146/72 12/26 0645 98.1 64 16 132/76 98 Room Air 12/25 2230 98.1 84 18 124/64 96 Room Air 12/25 1600 Room Air 12/25 1414 98.0 86 20 130/62 97 Room Air 12/25 0930 98.1 65 20 148/76 Intake & Output 12/26 1600 12/26 0800 12/26 0000 Intake Total 600 100 Output Total 750 1100 Balance -150 -1000 Intake, IV 600 Intake, Oral 100 Output, Urine 750 1100 Physical Exam General Appearance: Alert, Cooperative Skin: No Rashes Skin Temp/Moisture Exam: Warm/Dry Sepsis Skin Exam (color): Normal for Ethnicity HEENT: Atraumatic, EOMI Neck: Supple Cardiovascular: Normal S1, Normal S2 Lungs: Clear to Auscultation Abdomen: Soft, No Tenderness Neurological: Normal Tone Extremities: No Edema Assessment/Plan Assessment: 87 YO M with PMH of dementia(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 Seeing the patient on general medicine floor for following problems: Altered mental status:(improving) -Possibly due to catheter related UTI or chronic colonization. Patient has multiple positive urine cultures in the past with same organism. -Patient remained afebrile and his WBC count is within normal limits. -Difficult to interpret if its true infection or chronic colonization at this point. -Keep off antibiotics for now as recommended by id. -Patient is nothing by mouth and going for suprapubic cystostomy as family and his primary urologist agreed with the plan to keep him without Pascal's catheter to prevent further infections. -We are holding his morning Lovenox dose for procedure. -1 dose of 1 g meropenem was given preoperatively. -Urology we will follow the patient as outpatient to see if we passed the stone if he wouldn't able to pass the stone then lithotripsy will be done as outpatient. Generalized deconditioning and weakness: -Possibly due to infection if it's true infection. Or decreased oral intake considering patient's advanced dementia. -Patient is tolerating oral diet without any complaint. His appetite is good. -Aspiration precautions -Fall precautions -Patient needs help while eating. We will get swallow eval if patient has cough while eating. -PT recommended home self services. Constipation: -Patient was given lactulose enema yesterday. -His constipation has been relieved. History of hypertension: -Continue metoprolol and hydrochlorothiazide History of dementia: -Continue donepezil History of Parkinson disease: -Continue levodopa and carbidopa History of BPH: -Continue finasteride DVT prophylaxis: Mechanical and cutaneous Lovenox CODE STATUS: DNR/intubation Problem List: 1. Altered mental status Pain Ratin Pain Location: none Pain Goal: Remain pain free Pain Plan: pain pathway Tomorrow's Labs & Rationales: maribel Davis MD,Araceli 12/26/17 1104: Attending MD Review Statement Attending Statement Attending MD Statement: examined this patient, discuss w/resident/PA/OPERATING MANAGER, agreed w/resident/PA/OPERATING MANAGER, reviewed EMR data (avail), discussed with nursing, discussed with case mgmt, amended to note Attending Assessment/Plan: Patient seen and examined. Although still lethargic is in a better mood this morning. He did respond directly to her answers although very slowly. Denied being in any discomfort. We did explain the procedure he was going for today. At the end of the rounds he raises arm to shake with the team members all thank you for the visit. This is a change from his usual affect during the week. Examination Small petechial lesions of the lower extremities are present now on the lower leg. Nontender. No open area. Etiology is unknown. Probably a reaction to his sheets. Plan: Patient is scheduled for suprapubic catheter placement today. Perioperative antibiotic regimen as recommended by the ID service. Check CBC and chemistry in a.m. Check eosinophilia levels with labs. Anticipate discharge tomorrow if patient remains clinically stable.
--- NOTE | 2017-12-26 12:13 | Operative Report ---
Operative/Inv Procedure Report Surgery Date: 12/26/17 Name of Procedure: Percutaneous suprapubic cystostomy Pre-Operative Diagnosis: urinary retention Post-Operative Diagnosis: same Estimated Blood Loss: scant Surgeon/Outreach Team Member: Liban Anesthesia: moderate sedation Drains: 16 fr victoria as a suprapubic tube Specimens: none Complications: none Condition: fair Operative/Procedure Note Note: The patient was taken to the operating room and identified. As placed in supine position on the operating table. A timeout was executed appropriately with the patient awake. Intravenous sedation was given. The patient was then prepped and draped in the usual fashion for lower abdominal surgery. Surgical pause was executed appropriately. Victoria catheter which was already in place was connected to her bag of saline and the bladder distended to 1 L. Spinal needle was then placed percutaneously 2 fingerbreadths above the symphysis pubis into the bladder. With removal of the stylette irrigating fluid returned. A guidewire was placed through the spinal needle and the needle removed. An 8 Tajik dilator was passed over the wire and then a 10 Tajik dilator. At this point a #11 blade was used to make a small incision adjacent to the guidewire. The aggressive dilator from 10-20 Tajik was then placed over the wire. Peel-away sheath was placed over this larger dilator. At this point the guidewire and large dilator were removed leaving the peel-away sheath in place. Irrigating fluid from the bladder by drained from the peel-away sheath. A 16 Tajik Victoria catheter was placed through the sheath and 10 mL placed in the balloon. The sheath that sheath was then peeled away. The bladder drained well and the irrigating fluid drained with a light pink color. 2-0 nylon was used to fix the suprapubic catheter in place. A sterile dressing was then placed. Findings: urinary retention Discharge Disposition: PACU
[2017-12-26 13:00] VITALS: BP 140/78
--- NOTE | 2017-12-26 14:44 | PN- Infect Dx ---
Subjective Subjective: Afebrile without complaints Objective Last 24 Hrs of Vital Signs/I&O Vital Signs Date Time Temp Pulse Resp B/P B/P Pulse O2 O2 Flow FiO2 Mean Ox Delivery Rate 12/26 1300 98.6 58 18 140/78 95 Room Air 12/26 0814 64 146/72 12/26 0645 98.1 64 16 132/76 98 Room Air 12/25 2230 98.1 84 18 124/64 96 Room Air 12/25 1600 Room Air Intake & Output 12/26 1600 12/26 0800 12/26 0000 Intake Total 600 100 Output Total 750 1100 Balance -150 -1000 Intake, IV 600 Intake, Oral 100 Number 1 Bowel Movements Output, Urine 750 1100 Physical Exam Other Physical Findings: He appears comfortable in no acute distress Lungs are clear Heart regular rhythm with no murmur Abdomen is soft, nontender with positive bowel sounds; suprapubic dressing in place, with hematuria noted Results Last 24 Hours of Lab Results: No recent labs Last 24 Hours of Vito Results: No recent cultures Assessment/Plan ID Impression: Stable, with temperatures and white blood cell count remaining normal, status post placement of a suprapubic cystostomy for urinary retention earlier today. He was given 1 dose of Meropenem for prophylaxis prior to the procedure but should not require any further antibiotics postoperatively. Suggestion: 1. Follow off antibiotics Dr. Mccoy will be covering over the weekend
[2017-12-26 21:51] VITALS: BP 128/80
[2017-12-26 21:52] VITALS: BP 160/60
[2017-12-27 00:06] VITALS: BP 104/54
[2017-12-27 04:00] VITALS: BP 128/52
--- NOTE | 2017-12-27 08:16 | PN- Housestaff ---
Rolan PEREZ,Hazel 12/27/17 0816: Subjective Follow-up For: Generalized deconditioning(improved) Altered mental status(improved) Subjective: This morning patient refuses to answer any questions. On sternal rub he does arouse but refuses to communicate in any meaningful manner. The nurse states that there were no events overnight with him and that he similarly did not want to interact with her. As such review of systems is limited. Review of Systems Constitutional: Reports: no symptoms. Cardiovascular: Reports: see HPI. Objective Last 24 Hrs of Vital Signs/I&O Vital Signs Date Time Temp Pulse Resp B/P B/P Pulse O2 O2 Flow FiO2 Mean Ox Delivery Rate 12/27 0834 98.2 96 20 158/60 12/27 0825 98.2 96 20 158/60 98 Room Air 12/27 0400 98.2 68 20 128/52 96 Room Air 12/27 0006 98.9 71 20 104/54 94 Room Air 12/26 2152 97.5 92 20 160/60 94 12/26 2151 98.4 74 20 128/80 96 12/26 1300 98.6 58 18 140/78 95 Room Air Intake & Output 12/27 1600 12/27 0800 12/27 0000 Intake Total 500 300 Output Total 600 Balance 500 -300 Intake, IV 400 200 Intake, Oral 100 100 Output, Urine 600 Physical Exam General Appearance: No Acute Distress Skin: No Rashes, No Significant Lesion Skin Temp/Moisture Exam: Warm/Dry Sepsis Skin Exam (color): Normal for Ethnicity HEENT: Atraumatic, Mucous Membr. moist/pink Neck: Supple Cardiovascular: Regular Rate, Normal S1, Normal S2 Lungs: Clear to Auscultation, Normal Air Movement Abdomen: Normal Bowel Sounds, Soft, No Hepatospenomegaly Extremities: No Edema Current Medications: Current Medications Sig/Guido Start time Last Medication Dose Route Stop Time Status Admin Acetaminophen 325 MG Q6 PRN 12/26 1245 AC PO Carbidopa/Levodopa 1 TAB TID 12/26 1400 AC 12/27 PO 0834 Donepezil HCl 5 MG QPM 12/26 2100 AC 12/26 PO 2035 Enoxaparin Sodium 40 MG DAILY 12/27 0900 AC 12/27 SC 0832 Ferrous Sulfate 325 MG DAILY 12/27 0900 AC 12/27 PO 0832 Finasteride 5 MG DAILY 12/21 1107 DC 12/26 PO 0814 Hydrochlorothiazide 12.5 MG DAILY 12/27 899 AC 12/27 PO 08 Hydrochlorothiazide 12.5 MG DAILY 12/22 899 DC 12/26 PO 08 Magnesium Hydroxide 30 ML DAILY 12/27 899 AC 12/27 PO 0833 Metoprolol Succinate 50 MG DAILY 12/27 899 AC 12/27 PO 0834 Polyethylene Glycol 17 GM DAILY 12/27 899 AC 12/27 PO 0834 Potassium Chloride 10 MEQ DAILY 12/27 899 AC 12/27 PO 0832 Potassium Chloride 20 MEQ Q20H 12/26 1245 AC 12/27 Dextrose/Sodium 1,000 ML IV 0836 Chloride Last 24 Hrs of Lab/Vito Results Last 24 Hrs of Labs/Mics: Laboratory Tests 12/27/17 0648: CBC w Diff NO MAN DIFF REQ, RBC 3.45 L, MCV 85.9, MCH 28.6, MCHC 33.4, RDW 14.5 , MPV 7.6, Gran % 81.1 H, Lymphocytes % 13.0 L, Monocytes % 5.0, Eosinophils % 0.6, Basophils % 0.3, Absolute Granulocytes 6.7 H, Absolute Lymphocytes 1.1 L, Absolute Monocytes 0.4, Absolute Eosinophils 0, Absolute Basophils 0 Assessment/Plan Assessment: 87 YO M with PMH of dementia(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 Seeing the patient on general medicine floor for following problems: Altered mental status:(improving) -Possibly due to catheter related UTI or chronic colonization. Patient has multiple positive urine cultures in the past with same organism. -Patient remained afebrile and his WBC count is within normal limits. -Difficult to interpret if its true infection or chronic colonization at this point. -Keep off antibiotics for now as recommended by id. -Patient is nothing by mouth and going for suprapubic cystostomy as family and his primary urologist agreed with the plan to keep him without Pascal's catheter to prevent further infections. -We are holding his morning Lovenox dose for procedure. -1 dose of 1 g meropenem was given preoperatively. -Urology we will follow the patient as outpatient to see if we passed the stone if he wouldn't able to pass the stone then lithotripsy will be done as outpatient. Generalized deconditioning and weakness: -Possibly due to infection if it's true infection. Or decreased oral intake considering patient's advanced dementia. -Patient is tolerating oral diet without any complaint. His appetite is good. -Aspiration precautions -Fall precautions -Patient needs help while eating. We will get swallow eval if patient has cough while eating. -PT recommended home self services. Constipation: -Patient was given lactulose enema yesterday. -His constipation has been relieved. History of hypertension: -Continue metoprolol and hydrochlorothiazide History of dementia: -Continue donepezil History of Parkinson disease: -Continue levodopa and carbidopa History of BPH: -Continue finasteride DVT prophylaxis: Mechanical and cutaneous Lovenox CODE STATUS: DNR/intubation Problem List: 1. Altered mental status Pain Ratin Pain Location: na Pain Goal: Remain pain free Pain Plan: na Tomorrow's Labs & Rationales: maribel Davis MD,Araceli 12/27/17 1029: Attending MD Review Statement Attending Statement Attending MD Statement: examined this patient, discuss w/resident/PA/SENIOR MARKETING ENGINEER, agreed w/resident/PA/SENIOR MARKETING ENGINEER, reviewed EMR data (avail), discussed with nursing, discussed with case mgmt, amended to note Attending Assessment/Plan: Patient seen and examined. Resting comfortably not in any acute distress. No issues overnight. He had a suprapubic catheter placed yesterday with no events. He has a flat affect again this morning. Denies any pain. On examination suprapubic catheter is in place draining urine. Abdomen is soft and nontender. Bowel sounds are normal. He has no peripheral edema. Mild petechiae like lesions on his feet are improving. He remains afebrile hemodynamically stable. He is medically stable to be discharged today. No need for further antibiotic therapy. He will follow-up with the urology service as an outpatient.
[2017-12-27 08:25] VITALS: BP 158/60
[2017-12-27 08:34] VITALS: BP 158/60
--- NOTE | 2017-12-27 08:47 | PN- Urology ---
Subjective Subjective: Resting comfortably Objective Vital Signs and I&Os Vital Signs Date Time Temp Pulse Resp B/P B/P Pulse O2 O2 Flow FiO2 Mean Ox Delivery Rate 12/27 0834 98.2 96 20 158/60 12/27 0825 98.2 96 20 158/60 98 Room Air 12/27 0400 98.2 68 20 128/52 96 Room Air 12/27 0006 98.9 71 20 104/54 94 Room Air 12/26 2152 97.5 92 20 160/60 94 12/26 2151 98.4 74 20 128/80 96 12/26 1300 98.6 58 18 140/78 95 Room Air Intake & Output 12/27 1600 12/27 0800 12/27 0000 12/26 1600 12/26 0800 12/26 0000 Intake Total 500 300 530 600 100 Output Total 151 593 6359 Balance 500 -300 530 -150 -1000 Intake, IV 400 200 50 600 Intake, Oral 100 100 480 100 Number 1 Bowel Movements Output, Urine 004 361 7377 Abd: soft and non tender. Suprapubic tube in place and draining clear urine. ( hematuria post procedure has cleared). Dressing clean and mostly dry. Minimal serosanguinous drainage present Assessment/Plan Assessment/Plan Imp: 1. POD #1 s/p insertion of percutaneous suprapubic tube done for chronic urinary retention Plan: 1. may restart lovenox if indicated 2. From urology point of view patient ok for discharge. He will likely f/ u with his usual urologist, Dr Carson, in [place]
[2017-12-27 08:59] LABS: ABSOLUTE BASOPHIL COUNT 0 /CUMM (0.0-0.2); ABSOLUTE EOSINOPHIL COUNT 0 /CUMM (0.0-0.7); ABSOLUTE GRANULOCYTE CT 6.7 /CUMM (1.4-6.5); ABSOLUTE LYMPH COUNT 1.1 /CUMM (1.2-3.4); ABSOLUTE MONOCYTE COUNT 0.4 /CUMM (0.10-0.60); BASOPHIL % 0.3 % (0.0-2.0); EOSINOPHIL % 0.6 % (0-5); GRANULOCYTE % 81.1 % (42.2-75.2); HEMATOCRIT 29.6 % (42-52); MEAN CORPUSCULAR HGB 28.6 PG (27.0-31.0); MEAN CORPUSCULAR HGB CONC 33.4 G/DL (33.0-37.0); MEAN CORPUSCULAR VOLUME 85.9 FL (80.0-94.0); MEAN PLATELET VOLUME 7.6 FL (7.4-10.4); PLATELET COUNT 216 /CUMM (130-400); RBC DISTRIBUTION WIDTH 14.5 % (11.5-14.5); RED BLOOD CELL CT 3.45 /CUMM (4.70-6.10); WHITE BLOOD CELL COUNT 8.3 /CUMM (4.8-10.8)
== END 2017-12-27 13:40 | disposition home health service (06) | DRG 700 ==
LOC: ERH 19:11 → ERHI 22:31 → 2NA 22:31 → ENRESERV 23:28 → 2NA 12-21 00:08 → ENTRNSPT 12-26 12:34 → EDTRNSPTSTS 12-26 12:45 → EDTRNSPT 12-26 12:45 → CMPTRNSPT 12-26 13:00 → ENPENDDIS 12-27 11:37 → ENTRNSPT 12-27 13:19 → 2NA 12-27 13:40 → CMPTRNSPT 12-27 13:59
PROVIDERS: Pediatrics; Student in an Organized Health Care Education/Training Program
PROC: 0T9B30Z Drainage of Bladder with Drainage Device, Percutaneous Approach (ICD-10-PCS; principal; 2017-12-26)
DX: T83.511A Infection and inflammatory reaction due to indwelling urethral catheter, initial encounter (principal); G20 Parkinson's disease; F02.80 Dementia in other diseases classified elsewhere, unspecified severity, without behavioral disturbance, psychotic disturbance, mood disturbance, and anxiety; N30.90 Cystitis, unspecified without hematuria; Z22.8 Carrier of other infectious diseases; R23.3 Spontaneous ecchymoses; N40.1 Benign prostatic hyperplasia with lower urinary tract symptoms; K59.00 Constipation, unspecified; Z66 Do not resuscitate; R33.8 Other retention of urine; I10 Essential (primary) hypertension; B96.29 Other Escherichia coli [E. coli] as the cause of diseases classified elsewhere; Q54.9 Hypospadias, unspecified; N32.89 Other specified disorders of bladder; Z86.73 Personal history of transient ischemic attack (TIA), and cerebral infarction without residual deficits
CPT/HCPCS: 2NAP; ERO; 36415; 36592; 74176; 74177; 81001; 82436; 87040; 87086; 87147; 93005; 93010; 97161-GP; 97530-GO; J1100; J1650; J2001; J2185; J2405; J3480; J7042